=== PATIENT | female | born 1935 | race Caucasian/White ===

== ENCOUNTER 2017-02-22 17:57 | Inpatient (IN) ==
[2017-02-22 18:56] LABS: Bilirubin,Urine Negative (Negative); Blood,Urine Negative (Negative); Clarity,Urine Clear (Clear); Color,Urine Yellow (Yellow); Glucose,Urine (UA) Normal (Normal); Ketones,Urine Negative (Negative); Leukocyte Esterase,Urine Small (Negative); Nitrite,Urine Negative (Negative); PH,Urine 5.5 pH Units (5.0-8.0); Protein,Urine 30 mg/dL (Neg-Trace); Specific Gravity,Urine 1.017 (1.010-1.025); Urobilinogen,Urine Normal (Normal)
[2017-02-22] MEDS ORDERED: Ondansetron 4 MG/2 ML VIAL IVP ONE (19:00)
[2017-02-22] MEDS ORDERED: 0.9 % Sodium Chloride 1,000 ML IVC ONE ×2 (19:00→21:06)
[2017-02-22] MEDS ORDERED: Pantoprazole 40 MG VIAL IVP ONE (19:00)
[2017-02-22 19:33] LABS: Hyaline Casts,Urine Few per lpf (None-Few); Squamous Epithelial Cell,Urine Moderate per lpf (None-Few)
[2017-02-22 19:35] LABS: Bacteria,Urine None Seen per hpf (None-Few)
--- NOTE | 2017-02-22 19:52 | Emergency Department Note ---
Disposition Clinical Impression: Inflammation of small intestine Disposition: Admitted As Inpatient Condition: Good Time of Disposition: 23:28 Abdominal Pain HPI - General Chief Complaint: ED Abdominal Pain Stated Complaint: Poss bowel obstruction Time Seen by Provider: 02/22/17 18:32 Source: patient Nursing Notes Reviewed: Yes Vital Signs Reviewed: Yes - History of Present Illness HPI Narrative: Patient is a 81-year-old female with history of diabetes, status post appendectomy and hysterectomy years ago. Patient presents with chief complaint of abdominal pain, bloating, diarrhea 1 week. Patient states her symptoms began with early satiety after eating meals and now was able to eat less and less. Patient states she currently is only able to tolerate Jell-O or put in the past 3 days. Patient states that 5 days ago she had a large bowel movements of watery stool that did not resolve her symptoms of abdominal pain and distention. Patient states is generalized abdominal tenderness, constant 8- 10/10. Also admits to past medical history for breast cancer status post lumpectomy on left Pain Scale: 0 - Related Data Home Medications Medication Instructions Recorded Confirmed Allopurinol [Zyloprim 100 MG] 100 mg PO DAILY 02/22/17 02/22/17 Atorvastatin Calcium [Lipitor] 80 mg PO HS 02/22/17 02/22/17 Calcitriol [Rocaltrol] 0.25 mcg PO DAILY 02/22/17 02/22/17 Cholecalciferol (D-3) [Vitamin D] 1,000 unit PO DAILY 02/22/17 02/22/17 Ciprofloxacin HCl [Cipro] 500 mg PO BID 02/22/17 02/22/17 Furosemide [Lasix] 40 mg PO DAILY 02/22/17 02/22/17 Gabapentin [Neurontin] 600 mg PO BID 02/22/17 02/22/17 Glimepiride [Amaryl] 4 mg PO BID 02/22/17 02/22/17 Lisinopril [Zestril] 40 mg PO DAILY 02/22/17 02/22/17 Metoprolol Succinate 150 mg PO DAILY 02/22/17 02/22/17 Tramadol HCl [Ultram] 50 mg PO BID PRN 02/22/17 02/22/17 Vitamin B Complex [B Complex] 1 each PO DAILY 02/22/17 02/22/17 cloNIDine HCl [Clonidine HCl] 0.2 mg PO BID 02/22/17 02/22/17 metroNIDAZOLE [Flagyl] 500 mg PO BID 02/22/17 02/22/17 Allergies Allergy/AdvReac Type Severity Reaction Status Date / Time Procaine [From Novocain] AdvReac Shakiness Verified 02/22/17 18:06 All systems ED: reviewed and negative except as stated. Review of Systems: As Per HPI Constitutional: Denies: fever, chills Eyes: Denies: vision change Cardiovascular: Denies: chest pain, palpitations, dyspnea on exertion Respiratory: Reports: dyspnea Gastrointestinal: Reports: abdominal pain, nausea, diarrhea. Denies: vomiting, hematemesis, melena, hematochezia Genitourinary: Denies: urgency, dysuria, frequency, hematuria Musculoskeletal: Reports: back pain. Denies: neck pain, joint swelling, arthralgia, myalgia Integumentary: Denies: rash Neurological: Denies: headache, weakness Psychiatric: Denies: anxiety Endocrine: Denies: fatigue Hematological/Lymphatic: Denies: easy bleeding Abdominal Pain PMH - Past Medical History Medical history: Reports: diabetes Female Surgical History: Reports: appendectomy, hysterectomy, orthopedic, other Psychiatric history: Reports: no psych history - Social History Smoking status: Never smoker Alcohol use: Reports: none Drug use: Reports: none Physical Exam - General Limitations: no limitations General appearance: alert, in no apparent distress - Head Head exam: atraumatic, normocephalic, normal inspection - Eye Eye exam: Present: normal appearance, PERRL, EOMI - ENT ENT exam: normal exam, normal oropharynx, mucous membranes moist - Neck Neck exam: Present: normal inspection, full ROM, trachea midline - Chest Chest inspection: Present: normal inspection, symmetric chest wall rise - Cardiovascular Cardiovascular exam: Present: regular rate, normal rhythm, normal heart sounds - Abdominal Exam Abdominal exam: Present: soft, tenderness (Generalized tenderness throughout abdomen), distention (Rounded distended more lower abdomen), normal bowel sounds (Continuous bowel sounds with high-pitched noises), hyperactive bowel sounds. Absent: guarding, rebound, rigidity, trauma, Alvarez's sign - Rectal Exam Network/Telecom Engineer present during exam: Yes Rectal exam: Present: normal inspection, normal rectal tone, heme (-) stool. Absent: black stool (Brown stool), hemorrhoids, mass, tenderness - Extremities Exam Extremities exam: Present: normal inspection, full ROM. Absent: tenderness, pedal edema - Back Exam Back exam: Present: normal inspection, full ROM. Absent: tenderness, CVA tenderness (R), CVA tenderness (L) - Neurological Exam Neurological exam: Present: alert, oriented X3, CN II-XII intact - Skin Skin exam: Present: warm, dry, intact, normal color (Nontoxic appearing) Course - Reevaluation(s) Reevaluation #1: Patient seen and examined. Workup for bowel obstruction to include CT abdomen and pelvis no IV contrast secondary to patient's history of renal insufficiency CBC, BMP, fecal occult blood tests, lactate, lipase, LFTs. IV normal saline 1 L , Zofran for nausea Time: 19:00 Vital Signs Temperature 98.5 F 02/22/17 18:02 Pulse Rate 71 02/22/17 18:02 Respiratory Rate 16 02/22/17 18:02 Blood Pressure 208/82 02/22/17 18:02 O2 Sat by Pulse Oximetry 95 02/22/17 18:02 Temperature 98.5 F 02/22/17 22:24 Pulse Rate 63 02/22/17 20:05 Respiratory Rate 18 02/22/17 22:24 Blood Pressure 198/86 02/22/17 22:24 O2 Sat by Pulse Oximetry 95 02/22/17 20:05 Oxygen Delivery Oxygen Delivery Room Air Abdominal Pain - MDM Narrative Medical decision making narrative: Patient presented from her PCPs office for concerns secondary to possible small bowel obstruction or gastrointestinal ileus after acute abdominal series findings and clinical findings of early satiety, no abdominal distention, abdominal pain, and nausea. CT abdomen and pelvis was taken which showed no SBO or other full range obstruction. There was small bowel inflammation and concerns for possible perforation but could not be verified on CT. Current plan is for admission for serial abdominal exams. No surgical consult. Now secondary to nonsurgical abdomen no peritoneal signs or rebound tenderness. No elevation of lactate were lab abnormalities. Patient's creatinine and BUN are at patient's normal baseline. Urine is negative. Patient will be started on 750 mg of levofloxacin and 500 mg of metronidazole IV. Patient is nauseous and controlled the patient's pain is under control. Patient is currently doing well does not appear toxic. Patient does understand and agreed to treatment plan for admission. Patient was accepted for admission Dr. Van at 2049 hrs - Lab Data Lab results reviewed: Yes I reviewed the patient's lab results. Lab results narrative: Short CBC 02/22/17 Range/Units 19:56 WBC 8.8 (4.3-11.1) K/mcL Hgb 10.4 L (11.5-15.4) g/dL Hct 32.1 L (35.3-44.9) % Plt Count 164 (140-400) K/mcL Neutrophils # 6.8 (1.6-8.9) K/mcL BMP 02/22/17 Range/Units 19:56 Sodium 137 (136-145) mEq/L Potassium 3.7 (3.5-4.5) mEq/L Chloride 102 (98-109) mEq/L Carbon Dioxide 27 (19-29) mEq/L BUN 25 H (7-20) mg/dL Creatinine 1.42 H (0.57-1.11) mg/dL Glucose 209 H (70-99) mg/dL Calcium 10.0 (8.6-10.8) mg/dL Liver Function 02/22/17 Range/Units 19:56 Total Bilirubin 0.8 (0.2-1.2) mg/dL Direct Bilirubin 0.5 (0.0-0.5) mg/dL AST 28 (5-34) Units/L ALT 29 (0-55) Units/L Alkaline Phosphatase 71 (38-126) Units/L Albumin 2.8 L (3.5-5.0) g/dL Urine 02/22/17 Range/Units 18:37 Urine Color Yellow (Yellow) Urine Clarity Clear (Clear) Urine pH 5.5 (5.0-8.0) pH Units Ur Specific Hewitt 1.017 (1.010-1.025) Urine Protein 30 H (Neg-Trace) mg/dL Urine Glucose (UA) Normal (Normal) mg/dL Result diagrams: 02/22/17 19:56 02/22/17 19:56 Lab Results 02/22/17 02/22/17 02/22/17 Range/Units 18:37 19:00 19:56 WBC 8.8 (4.3-11.1) K/mcL RBC 3.42 L (3.82-4.97) M/mcL Hgb 10.4 L (11.5-15.4) g/dL Hct 32.1 L (35.3-44.9) % MCV 93.9 (83.0-100.0) fL MCH 30.4 (28.0-33.3) pg MCHC 32.4 (31.6-35.5) g/dL RDW 13.3 (11.5-14.5) % Plt Count 164 (140-400) K/mcL MPV 10.3 (9.4-12.4) fL Immature Gran % 0.6 (0-4) % Seg Neutrophils % 77.0 % Lymphocytes % 10.5 % Monocytes % 11.0 % Eosinophils % 0.6 % Basophils % 0.3 % Neutrophils # 6.8 (1.6-8.9) K/mcL Lymphocytes # 0.9 (0.6-4.6) K/mcL Monocytes # 1.0 (0.0-1.3) K/mcL Eosinophils # 0.1 (0.0-0.6) K/mcL Basophils # 0.0 (0.0-0.2) K/mcL Sodium (136-145) mEq/L Potassium (3.5-4.5) mEq/L Chloride (98-109) mEq/L Carbon Dioxide (19-29) mEq/L BUN (7-20) mg/dL Creatinine (0.57-1.11) mg/dL Est GFR ( Amer) (> 60) Est GFR (Non-Af Amer) (> 60) BUN/Creatinine Ratio (6-26) Glucose (70-99) mg/dL Calculated Osmolality (280-300) Lactic Acid (0.5-2.2) mmol/L Calcium (8.6-10.8) mg/dL Total Bilirubin (0.2-1.2) mg/dL Direct Bilirubin (0.0-0.5) mg/dL Indirect Bilirubin (0.0-1.2) mg/dL AST (5-34) Units/L ALT (0-55) Units/L Alkaline Phosphatase (38-126) Units/L Serum Total Protein (6.0-8.3) g/dL Albumin (3.5-5.0) g/dL Globulin (2.4-3.5) g/dL Albumin/Globulin Ratio (1.1-2.2) Lipase (8-78) Units/L Urine Color Yellow (Yellow) Urine Clarity Clear (Clear) Urine pH 5.5 (5.0-8.0) pH Units Ur Specific Hewitt 1.017 (1.010-1.025) Urine Protein 30 H (Neg-Trace) mg/dL Urine Glucose (UA) Normal (Normal) mg/dL Urine Ketones Negative (Negative) mg/dL Urine Blood Negative (Negative) Urine Nitrite Negative (Negative) Urine Bilirubin Negative (Negative) Urine Urobilinogen Normal (Normal) mg/dL Ur Leukocyte Esterase Small H (Negative) Urine Microscopic RBC Test Not Performed Urine Microscopic WBC 3-5 H (0-3) per hpf Ur Squamous Epith Cells Moderate H (None-Few) per lpf Urine Bacteria None Seen (None-Few) per hpf Hyaline Casts Few (None-Few) per lpf Ur Culture Indicated? YES A (NO) Stool Occult Blood Negative (Negative) 02/22/17 02/22/17 Range/Units 19:56 19:56 WBC (4.3-11.1) K/mcL RBC (3.82-4.97) M/mcL Hgb (11.5-15.4) g/dL Hct (35.3-44.9) % MCV (83.0-100.0) fL MCH (28.0-33.3) pg MCHC (31.6-35.5) g/dL RDW (11.5-14.5) % Plt Count (140-400) K/mcL MPV (9.4-12.4) fL Immature Gran % (0-4) % Seg Neutrophils % % Lymphocytes % % Monocytes % % Eosinophils % % Basophils % % Neutrophils # (1.6-8.9) K/mcL Lymphocytes # (0.6-4.6) K/mcL Monocytes # (0.0-1.3) K/mcL Eosinophils # (0.0-0.6) K/mcL Basophils # (0.0-0.2) K/mcL Sodium 137 (136-145) mEq/L Potassium 3.7 (3.5-4.5) mEq/L Chloride 102 (98-109) mEq/L Carbon Dioxide 27 (19-29) mEq/L BUN 25 H (7-20) mg/dL Creatinine 1.42 H (0.57-1.11) mg/dL Est GFR ( Amer) 43 L (> 60) Est GFR (Non-Af Amer) 36 L (> 60) BUN/Creatinine Ratio 18 (6-26) Glucose 209 H (70-99) mg/dL Calculated Osmolality 295 (280-300) Lactic Acid 0.8 (0.5-2.2) mmol/L Calcium 10.0 (8.6-10.8) mg/dL Total Bilirubin 0.8 (0.2-1.2) mg/dL Direct Bilirubin 0.5 (0.0-0.5) mg/dL Indirect Bilirubin 0.3 (0.0-1.2) mg/dL AST 28 (5-34) Units/L ALT 29 (0-55) Units/L Alkaline Phosphatase 71 (38-126) Units/L Serum Total Protein 6.9 (6.0-8.3) g/dL Albumin 2.8 L (3.5-5.0) g/dL Globulin 4.1 H (2.4-3.5) g/dL Albumin/Globulin Ratio 0.7 L (1.1-2.2) Lipase 56 (8-78) Units/L Urine Color (Yellow) Urine Clarity (Clear) Urine pH (5.0-8.0) pH Units Ur Specific Hewitt (1.010-1.025) Urine Protein (Neg-Trace) mg/dL Urine Glucose (UA) (Normal) mg/dL Urine Ketones (Negative) mg/dL Urine Blood (Negative) Urine Nitrite (Negative) Urine Bilirubin (Negative) Urine Urobilinogen (Normal) mg/dL Ur Leukocyte Esterase (Negative) Urine Microscopic RBC Urine Microscopic WBC (0-3) per hpf Ur Squamous Epith Cells (None-Few) per lpf Urine Bacteria (None-Few) per hpf Hyaline Casts (None-Few) per lpf Ur Culture Indicated? (NO) Stool Occult Blood (Negative) - Radiology Data Radiology results reviewed: Yes I reviewed the patient's radiology results. Abdomen/Pelvis CT 02/22/17 19:01 IMPRESSION: 1. Cluster of inflamed small bowel loops in the mid left abdomen with wall thickening and mesenteric stranding. Cannot exclude a a small contained perforation and further evaluation could be obtained with repeat study with oral contrast. No well-defined drainable fluid collection. 2. Colonic diverticulosis without evidence of acute diverticulitis. 3. 4.1 cm indeterminate lesion arising from the lower pole of the left kidney probably representing a proteinaceous cyst though neoplasm cannot be excluded. Several small exophytic lesions arising from the lower pole of the right kidney too small to definitively characterize. Recommend further evaluation with nonemergent ultrasound or CT urogram. D/ / Carlos Middleton MD / Carlos Middleton MD Interpreting Provider: Carlos Middleton MD Attestation Statement - Attestation Attestation: I examined this patient and my medical decision-making was reviewed with the Resident Physician. I agree with the documented findings, disposition and treatment plan as described except to the extent set forth below. Patient eating about abdominal pain. Nausea and diarrhea. Small caliber bowel movements. Increasing over the past week. History of multiple abdominal surgeries. Patient with a moderate amount of diffuse tenderness on exam. Plan. Patient has an area of thickened small bowel and her CT scan. Concern because they could not rule out a contained perforation. Antibiotic and admit.
[2017-02-22 20:12] LABS: Basophils % 0.3 %; Eosinophils # 0.1 K/mcL (0.0-0.6); Eosinophils % 0.6 %; Hematocrit 32.1 % (35.3-44.9); Hemoglobin 10.4 g/dL (11.5-15.4); Immature Granulocytes % 0.6 % (0-4); Lymphocytes # 0.9 K/mcL (0.6-4.6); Lymphocytes % 10.5 %; Mean Corpuscular HGB Conc 32.4 g/dL (31.6-35.5); Mean Corpuscular Hemoglobin 30.4 pg (28.0-33.3); Mean Corpuscular Volume 93.9 fL (83.0-100.0); Mean Platelet Volume 10.3 fL (9.4-12.4); Neutrophils # 6.8 K/mcL (1.6-8.9); Platelet Count 164 K/mcL (140-400); Red Blood Count 3.42 M/mcL (3.82-4.97); Red Cell Distribution Width 13.3 % (11.5-14.5)
[2017-02-22 20:27] LABS: Albumin 2.8 g/dL (3.5-5.0); Albumin/Globulin Ratio 0.7 (1.1-2.2); Bilirubin,Direct 0.5 mg/dL (0.0-0.5); Bilirubin,Indirect 0.3 mg/dL (0.0-1.2); Bilirubin,Total 0.8 mg/dL (0.2-1.2); Globulin 4.1 g/dL (2.4-3.5); Potassium 3.7 mEq/L (3.5-4.5); Total Protein 6.9 g/dL (6.0-8.3)
[2017-02-22] MEDS ORDERED: Levofloxacin 750 MG/150 ML 750 MG/150 ML BAG IVPB ONE (20:57)
[2017-02-22] MEDS ORDERED: MetroNIDAZOLE 500 MG/100 ML 500 MG/100 ML BAG IVPB ONE (20:57)
[2017-02-22] MEDS ORDERED: *HR* Morphine 2 MG/ML SYRINGE IVP ONE (21:06)
[2017-02-23] MEDS ORDERED: cloNIDine HCl 0.1 MG TABLET PO ONE (00:25)
--- NOTE | 2017-02-23 00:49 | Internal Med History&Physical ---
Date of Encounter: 02/23/17 Time of Encounter: 00:49 Assessment and Plan (1) Enteritis Current visit: Yes Status: Acute CT: Cluster of inflamed small bowel loops in the mid left abdomen with wall thickening and mesenteric stranding. Cannot exclude a a small contained perforation and further evaluation could be obtained with repeat study with oral contrast. No well-defined drainable fluid collection. - WBC 8k - Lactate normal - Non toxic appearing - Conservative management - IVF - IV metronidazole and ciprofloxacin (02/22- ) - Dilaudid/Compazine prn - Recheck lactate in AM - NPO (2) Accelerated hypertension Current visit: Yes Status: Acute Resume clonidine, metoprolol, lisinopril (3) Diabetes mellitus Current visit: Yes Status: Acute Hold glimipiride while NPO in the setting of CKD - start SSI Qualifiers: Diabetes mellitus type: type 2 Diabetes mellitus complication status: with kidney complications Diabetes mellitus complication detail: with chronic kidney disease Diabetes mellitus rat exterminator insulin use: without rat exterminator use Chronic kidney disease stage: stage 3 (moderate) Qualified Code(s): E11.22 - Type 2 diabetes mellitus with diabetic chronic kidney disease; N18.3 - Chronic kidney disease, stage 3 (moderate) (4) CKD (chronic kidney disease) stage 3, GFR 30-59 ml/min Current visit: Yes Status: Acute - Cr at baseline - Avoid nephrotoxic agents (5) Kidney lesion Current visit: Yes Status: Acute CT: 4.1 cm indeterminate lesion arising from the lower pole of the left kidney probably representing a proteinaceous cyst though neoplasm cannot be excluded. Several small exophytic lesions arising from the lower pole of the right kidney too small to definitively characterize. - OP renal ultrasound or CT urogram. Internal Medicine - H&P: HPI Chief complaint: abd pain Admitted From: Emergency Dept Plans for Post Hospital Care: Home History of present illness: 81W with DM, HTN, CKD3 (baseline Cr 1.2-1.3), prior abdominal surgeries ( appendectomy, hysterectomy) and breast cancer s/p lumpectomy has presented with 1 week of diffuse generalized abdominal pain, crampy in nature, varying in intensity, associated with nausea, fever 99F and weakness. Decreased oral intake. Diarrheal BM 5 days ago. Now, decreased stool amount, but passing small BMs. Passing flatus. Dry cough. Headache. Occasional dizziness. Exertional dyspnea at baseline. A 10-point ROS is otherwise negative. Past Med Surg Social Fam HX - Past Medical History Medical history: diabetes Psychiatric history: no psych history - Past Surgical History Surgical History: appendectomy, breast surgery, hysterectomy - Social History Smoking Status: Never smoker Smokeless Tobacco Status: No Alcohol use: none Drug use: none - Family History Father Hx Family Cardiac Disorders: Yes (HYPERTENSION.) Internal Medicine - H&P: Meds Allopurinol [Zyloprim 100 MG] 100 mg PO DAILY 02/22/17 [History] Atorvastatin Calcium [Lipitor] 80 mg PO HS 02/22/17 [History] Calcitriol [Rocaltrol] 0.25 mcg PO DAILY 02/22/17 [History] Cholecalciferol (D-3) [Vitamin D] 1,000 unit PO DAILY 02/22/17 [History] Ciprofloxacin HCl [Cipro] 500 mg PO BID 02/22/17 [History] Furosemide [Lasix] 40 mg PO DAILY 02/22/17 [History] Gabapentin [Neurontin] 600 mg PO BID 02/22/17 [History] Glimepiride [Amaryl] 4 mg PO BID 02/22/17 [History] Lisinopril [Zestril] 40 mg PO DAILY 02/22/17 [History] Metoprolol Succinate 150 mg PO DAILY 02/22/17 [History] Tramadol HCl [Ultram] 50 mg PO BID PRN 02/22/17 [History] Vitamin B Complex [B Complex] 1 each PO DAILY 02/22/17 [History] cloNIDine HCl [Clonidine HCl] 0.2 mg PO BID 02/22/17 [History] metroNIDAZOLE [Flagyl] 500 mg PO BID 02/22/17 [History] 3 Allergy/AdvReac Type Severity Reaction Status Date / Time Procaine [From Novocain] AdvReac Shakiness Verified 02/22/17 18:06 All Systems PM: A 10-system review of systems was performed and is negative for pertinent findings except as documented above in the HPI. - Constitutional Vitals: Temp Pulse Resp BP Pulse Ox 98.3 F 67 15 204/72 95 02/22/17 23:42 02/22/17 23:42 02/22/17 23:42 02/22/17 23:42 02/22/17 23:42 General appearance: Present: A&O X 3, pleasant, no acute distress (non toxic appearing) - Head Head exam: Present: atraumatic, normocephalic - Eye Eye exam: Present: PERRL, conjuntiva pink, sclera anicteric Pupils: Present: PERRL - Neck Neck exam general surgery: Present: supple, trachea midline. Absent: nuchal rigidity - Respiratory Respiratory exam: Present: CTAB. Absent: accessory muscle use, rales, rhonchi, wheezes - Cardiovascular Cardiovascular exam: Present: RRR, +S1, +S2. Absent: diastolic murmur, gallop, rubs, systolic murmur - GI/Abdominal GI/Abdominal exam: Present: normal bowel sounds (all 4 quadrannts), soft, tenderness (diffuse mild), no peritoneal signs. Absent: distended, firm, guarding, rebound, rigid - Extremities Exam Extremities exam: Present: warm, radial pulses palpable and symmetrical. Absent : calf tenderness, cyanotic, pedal edema - Neurological Exam Neurological exam: Present: CN II-XII intact, oriented X3, no focal deficits. Absent: facial droop, speech deficit - Psychiatric Psychiatric exam: Present: normal affect, normal mood - Skin Skin exam: Present: dry, intact. Absent: rash Internal Med - H&P Results - Labs CBC & Chem 7: 02/22/17 19:56 02/22/17 19:56
[2017-02-23] MEDS ORDERED: Acetaminophen 325 MG TABLET PO PRN (01:19)
[2017-02-23] MEDS ORDERED: D5% in Water 1,000 ML IVC PRN (01:19)
[2017-02-23] MEDS ORDERED: Dextrose Gel 15 GM PO PRN ×2 (01:19)
[2017-02-23] MEDS ORDERED: *HR* HYDROmorphone (PF) 1 MG/ML SYRINGE IVP PRN (01:19)
[2017-02-23] MEDS ORDERED: *HR* Dextrose 50 % in Water (Syg) 50 ML SYRINGE IVP PRN (01:19)
[2017-02-23] MEDS ORDERED: Naloxone 0.4 MG/ML INJ IVP PRN (01:19)
[2017-02-23] MEDS ORDERED: Prochlorperazine 10 MG/2 ML VIAL IM PRN (01:24)
[2017-02-23] MEDS: Ringers Solution, Lactated 1,000 ML IVC SCH ×3 (02:00→20:01)
[2017-02-23 02:47] LABS: Hemoglobin A1C 7.2 %
[2017-02-23 05:16] LABS: Basophils % 0.5 %; Eosinophils # 0.1 K/mcL (0.0-0.6); Eosinophils % 1.5 %; Hematocrit 29.8 % (35.3-44.9); Hemoglobin 9.9 g/dL (11.5-15.4); Immature Granulocytes % 0.6 % (0-4); Lymphocytes % 15.4 %; Mean Corpuscular HGB Conc 33.2 g/dL (31.6-35.5); Mean Corpuscular Volume 93.4 fL (83.0-100.0); Mean Platelet Volume 9.9 fL (9.4-12.4); Monocytes # 0.8 K/mcL (0.0-1.3); Monocytes % 12.7 %; Neutrophils # 4.6 K/mcL (1.6-8.9); Platelet Count 154 K/mcL (140-400); Red Blood Count 3.19 M/mcL (3.82-4.97); Red Cell Distribution Width 13.2 % (11.5-14.5); Segmented Neutrophils % 69.3 %
[2017-02-23 05:25] LABS: Calcium 9.6 mg/dL (8.6-10.8); Magnesium 1.9 mg/dL (1.6-2.6); Phosphorous 3.4 mg/dL (2.3-4.7)
[2017-02-23] MEDS: *HR* Heparin 5,000 UNIT/ML VIAL SQ SCH ×3 (05:33→21:09)
[2017-02-23] MEDS: Insulin LISPRO 300 UNITS/3 ML VIAL SQ SCH ×3 (06:02→17:41)
[2017-02-23] MEDS: MetroNIDAZOLE 500 MG/100 ML 500 MG/100 ML BAG IVPB SCH ×3 (07:37→23:11)
[2017-02-23] MEDS: Gabapentin 300 MG CAPSULE PO SCH ×2 (07:37→20:02)
[2017-02-23] MEDS: Metoprolol XL (24 HR) Succ 50 MG TAB.ER.24H PO SCH (07:37)
[2017-02-23] MEDS: Lisinopril 20 MG TABLET PO SCH (07:37)
[2017-02-23] MEDS: cloNIDine HCl 0.1 MG TABLET PO SCH ×2 (07:37→20:02)
--- NOTE | 2017-02-23 18:22 | Internal Med Progress Note ---
Date of Encounter: 02/23/17 Time of Encounter: 18:19 - Assessment and plan (1) Malignant hypertension Current Visit: Yes Status: Acute Assessment and plan: Continue lisinopril, clonidine Hydralazine IV Consider nitroglycerin drip if not improving (2) Enteritis Current Visit: Yes Status: Acute Assessment and plan: Severe abdominal pain possibly secondary to acute enteritis with possible microperforation Continue ciprofloxacin IV and Flagyl IV, nothing by mouth, IV fluids Morphine for pain Repeat CT scan of the abdomen and pelvis with oral contrast IMPRESSION: 1. Cluster of inflamed small bowel loops in the mid left abdomen with wall thickening and mesenteric stranding. Cannot exclude a a small contained perforation and further evaluation could be obtained with repeat study with oral contrast. No well-defined drainable fluid collection. 2. Colonic diverticulosis without evidence of acute diverticulitis. 3. 4.1 cm indeterminate lesion arising from the lower pole of the left kidney probably representing a proteinaceous cyst though neoplasm cannot be excluded. Several small exophytic lesions arising from the lower pole of the right kidney too small to definitively characterize. Recommend further evaluation with nonemergent ultrasound or CT urogram. (3) Diabetes mellitus Current Visit: Yes Status: Acute Assessment and plan: Continue insulin sliding scale Qualifiers: Diabetes mellitus type: type 2 Diabetes mellitus complication status: with kidney complications Diabetes mellitus complication detail: with chronic kidney disease Diabetes mellitus terminal operator insulin use: without terminal operator use Chronic kidney disease stage: stage 3 (moderate) Qualified Code(s): E11.22 - Type 2 diabetes mellitus with diabetic chronic kidney disease; N18.3 - Chronic kidney disease, stage 3 (moderate) (4) CKD (chronic kidney disease) stage 3, GFR 30-59 ml/min Current Visit: Yes Status: Acute (5) Kidney lesion Current Visit: Yes Status: Acute Assessment and plan: 4.1 cm indeterminate lesion arising from the lower pole of the left kidney probably representing a proteinaceous cyst though neoplasm cannot be excluded. Several small exophytic lesions arising from the lower pole of the right kidney too small to definitively characterize. - Subjective Interval history: Severe abdominal tenderness, nausea, denies any chest pressure of breath, - Constitutional Vitals: Temp Pulse Resp BP Pulse Ox 98.3 F 62 16 133/64 95 02/23/17 15:18 02/23/17 15:18 02/23/17 15:18 02/23/17 15:58 02/23/17 15:18 General appearance: Present: A&O X 3, pleasant, no acute distress (non toxic appearing) Exam: Dry mucosa - Head Head exam: Present: atraumatic, normocephalic - Eye Eye exam: Present: PERRL, conjuntiva pink, sclera anicteric Pupils: Present: PERRL - Neck Neck exam general surgery: Present: supple, trachea midline. Absent: lymphadenopathy - Respiratory Respiratory exam: Present: decreased breath sounds, CTAB. Absent: accessory muscle use, rales, rhonchi, wheezes - Cardiovascular Cardiovascular exam: Present: RRR, +S1, +S2, systolic murmur (Systolic murmur 2 out of 6 radiated to the aortic area). Absent: diastolic murmur, gallop, rubs - GI/Abdominal GI/Abdominal exam: Present: distended (Very distended, diffusely tender, possible rebound), normal bowel sounds, soft, tenderness, no peritoneal signs - Extremities Exam Extremities exam: Present: warm, radial pulses palpable and symmetrical. Absent : calf tenderness, cyanotic, pedal edema - Neurological Exam Neurological exam: Present: CN II-XII intact, oriented X3, no focal deficits. Absent: pronater drift, facial droop, speech deficit - Skin Skin exam: Present: dry, intact Internal Medicine: Result - Labs CBC & Chem 7: 02/23/17 05:06 02/23/17 05:06 Labs: Short CBC 02/23/17 Range/Units 05:06 WBC 6.6 (4.3-11.1) K/mcL Hgb 9.9 L (11.5-15.4) g/dL Hct 29.8 L (35.3-44.9) % Plt Count 154 (140-400) K/mcL Neutrophils # 4.6 (1.6-8.9) K/mcL BMP 02/23/17 05:06 Sodium 141 Potassium 4.0 Chloride 105 Carbon Dioxide 29 BUN 20 Creatinine 1.36 H Glucose 72 Calcium 9.6 Consult Discharge Plan - Plan Referrals: Solis Armas CNP [Primary Care Provider] -
[2017-02-24] MEDS: Insulin LISPRO 300 UNITS/3 ML VIAL SQ SCH ×4 (00:10→17:24)
[2017-02-24] MEDS: Ringers Solution, Lactated 1,000 ML IVC SCH ×4 (03:26→18:25)
[2017-02-24 05:02] LABS: Hematocrit 29.6 % (35.3-44.9); Hemoglobin 9.9 g/dL (11.5-15.4); Immature Platelets 2.1 % (1.1-6.1); Mean Corpuscular HGB Conc 33.4 g/dL (31.6-35.5); Mean Corpuscular Hemoglobin 30.9 pg (28.0-33.3); Mean Corpuscular Volume 92.5 fL (83.0-100.0); Mean Platelet Volume 10.5 fL (9.4-12.4); Red Blood Count 3.2 M/mcL (3.82-4.97); Red Cell Distribution Width 13.2 % (11.5-14.5)
[2017-02-24] MEDS: *HR* Heparin 5,000 UNIT/ML VIAL SQ SCH ×3 (05:35→21:02)
[2017-02-24 05:48] LABS: Calcium 9.4 mg/dL (8.6-10.8); Potassium 3.7 mEq/L (3.5-4.5)
[2017-02-24] MEDS: MetroNIDAZOLE 500 MG/100 ML 500 MG/100 ML BAG IVPB SCH ×3 (07:50→23:13)
[2017-02-24] MEDS: Lisinopril 20 MG TABLET PO SCH (07:50)
[2017-02-24] MEDS: cloNIDine HCl 0.1 MG TABLET PO SCH ×2 (07:51→20:25)
[2017-02-24] MEDS: Gabapentin 300 MG CAPSULE PO SCH ×2 (07:51→19:44)
[2017-02-24] MEDS: Metoprolol XL (24 HR) Succ 50 MG TAB.ER.24H PO SCH (07:51)
--- NOTE | 2017-02-24 15:13 | General Surgery Consult Note ---
<Kym Bautista - Last Filed: 02/24/17 15:06> Date of Encounter: 02/24/17 Time of Encounter: 14:00 Assessment and Plan (1) Enteritis Current Visit: Yes Status: Acute May have clear liquids IV fluids IV antibiotics- Cipro and Flagyl (will need to continue for at least 48 hours) Serial abdominal exams Supportive care/pain control Will continue to follow and assess progress No urgent surgical intervention indicated at this time (2) Phlegmon Current Visit: Yes Status: Acute Continue IV antibiotics for at least the next 48 hours- cipro and flagyl History of Present Illness Consult date: 02/24/17 Reason for consult: abdominal pain Requesting physician: Jack Stearns History of present illness: Mrs. Barksdale is a very pleasant 81 year old female who was transferred to [place] due to an abnormal CT scan. She reports abdominal pain for the past 1 week. She describes the pain as a cramping pain. She states that the pain is worse with eating. She states that the pain essentially resolves if she doesn't eat for a day. Admit to nausea without vomiting. Admits to bloating. Admits to fevers and chills. She has not checked her temperature. She has had a decrease in the amount of bowel movements over the past 1 week but denies any constipation or diarrhea. She typically has a bowel movement 1 time daily. She reports decreased flatus. Denies any difficulty with urination. Admits to shortness of breath with activity. Denies any chest pains. We have been asked to see and evaluate the patient for her abdominal pain and abnormal CT scan results. Past Med Surg Social Fam HX - Past Medical History Source: old records reviewed Medical history: diabetes (Type 2), hyperlipidemia, hypertension, renal disease , other (neuropathy, gout) Psychiatric history: no psych history - Past Surgical History Surgical History: appendectomy, breast surgery (left), cancer surgery (breast ( left)), hysterectomy, other (colonoscopy X 2) - Social History Smoking Status: Never smoker Smokeless Tobacco Status: No Alcohol use: none Drug use: none Current living situation: Home - Independent Activity Level: Independent ambulation - Family History Father Living Status: Age at : 73 Cause of : heart disease Hx Family Cardiac Disorders: Yes (HYPERTENSION.) Mother Living Status: Age at : 72 Cause of : pancreatic cancer Hx Family Cancer: Yes (pancreatic) Sister Living Status: Age at : 80 Hx Family Cancer: Yes (breast cancer) Hx Family Endocrine Disorder: Yes (Diabetes Mellitus) Medications and Allergies Allopurinol [Zyloprim 100 MG] 100 mg PO DAILY 02/22/17 [History] Atorvastatin Calcium [Lipitor] 80 mg PO HS 02/22/17 [History] Calcitriol [Rocaltrol] 0.25 mcg PO DAILY 02/22/17 [History] Cholecalciferol (D-3) [Vitamin D] 1,000 unit PO DAILY 02/22/17 [History] Ciprofloxacin HCl [Cipro] 500 mg PO BID 02/22/17 [History] Furosemide [Lasix] 40 mg PO DAILY 02/22/17 [History] Gabapentin [Neurontin] 600 mg PO BID 02/22/17 [History] Glimepiride [Amaryl] 4 mg PO BID 02/22/17 [History] Lisinopril [Zestril] 40 mg PO DAILY 02/22/17 [History] Metoprolol Succinate 150 mg PO DAILY 02/22/17 [History] Tramadol HCl [Ultram] 50 mg PO BID PRN 02/22/17 [History] Vitamin B Complex [B Complex] 1 each PO DAILY 02/22/17 [History] cloNIDine HCl [Clonidine HCl] 0.2 mg PO BID 02/22/17 [History] metroNIDAZOLE [Flagyl] 500 mg PO BID 02/22/17 [History] 3 Allergy/AdvReac Type Severity Reaction Status Date / Time Procaine [From Novocain] AdvReac Shakiness Verified 02/22/17 18:06 Review of Systems All systems PM: reviewed and no additional remarkable complaints except as stated (in the HPI) All systems PM: A 10-system review of systems was performed and is negative for pertinent findings except as documented above in the HPI. General Surgery Exam Initial Vital Signs Temp Pulse Resp BP Pulse Ox 98.5 F 71 16 208/82 95 02/22/17 18:02 02/22/17 18:02 02/22/17 18:02 02/22/17 18:02 02/22/17 18:02 - General physical appearance well developed, well nourished, no distress, no pain - Eyes normal ocular movement - ENT normal mucosa, atraumatic, normocephalic - Neck trachea midline - Respiratory normal respiratory effort, clear to auscultation - Cardiovascular Cardiovascular exam: Present: RRR - Abdomen Abdomen general surgery: Present: bowel sounds present, soft, non tender - Integumentary Integumentary general surgery: Present: warm and dry - Neurologic Present: CN 2-12 grossly intact - Musculoskeletal Present: normal gait, normal posture - Psychiatric Psychiatric general surgery: Present: appropriate, oriented to person, oriented to place, oriented to time, speech is normal, memory intact Exam Initial Vital Signs Temp Pulse Resp BP Pulse Ox 98.5 F 71 16 208/82 95 02/22/17 18:02 02/22/17 18:02 02/22/17 18:02 02/22/17 18:02 02/22/17 18:02 Results - Labs 02/24/17 03:55 02/24/17 03:55 Abnormal lab results RBC 3.20 M/mcL (3.82-4.97) L 02/24/17 03:55 Hgb 9.9 g/dL (11.5-15.4) L 02/24/17 03:55 Hct 29.6 % (35.3-44.9) L 02/24/17 03:55 Creatinine 1.30 mg/dL (0.57-1.11) H 02/24/17 03:55 Est GFR ( Amer) 48 (> 60) L 02/24/17 03:55 Est GFR (Non-Af Amer) 40 (> 60) L 02/24/17 03:55 Glucose 101 mg/dL (70-99) H 02/24/17 03:55 POC Glucose 93 (58-89) H 02/24/17 04:38 Hemoglobin A1c 7.2 % (-5.6) H 02/22/17 19:56 Albumin 2.8 g/dL (3.5-5.0) L 02/22/17 19:56 Globulin 4.1 g/dL (2.4-3.5) H 02/22/17 19:56 Albumin/Globulin Ratio 0.7 (1.1-2.2) L 02/22/17 19:56 Urine Protein 30 mg/dL (Neg-Trace) H 02/22/17 18:37 Ur Leukocyte Esterase Small (Negative) H 02/22/17 18:37 Urine Microscopic WBC 3-5 per hpf (0-3) H 02/22/17 18:37 Ur Squamous Epith Cells Moderate per lpf (None-Few) H 02/22/17 18:37 Ur Culture Indicated? YES (NO) A 02/22/17 18:37 Diabetes panel 02/24/17 Range/Units 03:55 Sodium 140 (136-145) mEq/L Potassium 3.7 (3.5-4.5) mEq/L Chloride 104 (98-109) mEq/L Carbon Dioxide 26 (19-29) mEq/L BUN 14 (7-20) mg/dL Creatinine 1.30 H (0.57-1.11) mg/dL Glucose 101 H (70-99) mg/dL Calcium 9.4 (8.6-10.8) mg/dL Calcium panel 02/24/17 Range/Units 03:55 Calcium 9.4 (8.6-10.8) mg/dL Pituitary panel 02/24/17 Range/Units 03:55 Sodium 140 (136-145) mEq/L Potassium 3.7 (3.5-4.5) mEq/L Chloride 104 (98-109) mEq/L Carbon Dioxide 26 (19-29) mEq/L BUN 14 (7-20) mg/dL Creatinine 1.30 H (0.57-1.11) mg/dL Glucose 101 H (70-99) mg/dL Calcium 9.4 (8.6-10.8) mg/dL Adrenal panel 02/24/17 Range/Units 03:55 Sodium 140 (136-145) mEq/L Potassium 3.7 (3.5-4.5) mEq/L Chloride 104 (98-109) mEq/L Carbon Dioxide 26 (19-29) mEq/L BUN 14 (7-20) mg/dL Creatinine 1.30 H (0.57-1.11) mg/dL Glucose 101 H (70-99) mg/dL Calcium 9.4 (8.6-10.8) mg/dL All other labs normal. - Imaging CT scan - abdomen: report reviewed CT scan - pelvis: report reviewed Additional studies: Abdomen/Pelvis CT 02/23/17 21:00 IMPRESSION: Inflamed appearing and lesser small bowel loops in the left mid abdomen with moderate amount of mesenteric edema and associated adenopathy. There are adjacent foci of extraluminal gas including the contrast containing rounded 1.5 cm collection. Findings could represent small-bowel diverticulitis and/or contained perforation. Underlying neoplasm cannot be excluded. Bilateral lower pole renal cortical lesions, larger on the left, with density greater than expected for stones. Follow-up renal ultrasound versus renal protocol CT or MRI would be helpful to exclude solid lesion. D/ / Glory Escalona Cha, MD / Glory Escalona Cha, MD Interpreting Provider: Glory Escalona Cha, MD Consult Discharge Plan - Plan Referrals: Solis Armas CNP [Primary Care Provider] - - Attending Attestation For this encounter, I have reviewed the LOOP CUTTER or PA documentation, treatment plan, and medical decision making; and I have had face to face time with this patient. <Nayan Gustafson - Last Filed: 02/24/17 17:15> Date of Encounter: 02/24/17 Review of Systems All systems PM: A 10-system review of systems was performed and is negative for pertinent findings except as documented above in the HPI. General Surgery Exam Initial Vital Signs Temp Pulse Resp BP Pulse Ox 98.5 F 71 16 208/82 95 02/22/17 18:02 02/22/17 18:02 02/22/17 18:02 02/22/17 18:02 02/22/17 18:02 Exam Initial Vital Signs Temp Pulse Resp BP Pulse Ox 98.5 F 71 16 208/82 95 02/22/17 18:02 02/22/17 18:02 02/22/17 18:02 02/22/17 18:02 02/22/17 18:02 Results - Labs 02/24/17 03:55 02/24/17 03:55 Abnormal lab results RBC 3.20 M/mcL (3.82-4.97) L 02/24/17 03:55 Hgb 9.9 g/dL (11.5-15.4) L 02/24/17 03:55 Hct 29.6 % (35.3-44.9) L 02/24/17 03:55 Creatinine 1.30 mg/dL (0.57-1.11) H 02/24/17 03:55 Est GFR ( Amer) 48 (> 60) L 02/24/17 03:55 Est GFR (Non-Af Amer) 40 (> 60) L 02/24/17 03:55 Glucose 101 mg/dL (70-99) H 02/24/17 03:55 POC Glucose 93 (58-89) H 02/24/17 04:38 Hemoglobin A1c 7.2 % (-5.6) H 02/22/17 19:56 Albumin 2.8 g/dL (3.5-5.0) L 02/22/17 19:56 Globulin 4.1 g/dL (2.4-3.5) H 02/22/17 19:56 Albumin/Globulin Ratio 0.7 (1.1-2.2) L 02/22/17 19:56 Urine Protein 30 mg/dL (Neg-Trace) H 02/22/17 18:37 Ur Leukocyte Esterase Small (Negative) H 02/22/17 18:37 Urine Microscopic WBC 3-5 per hpf (0-3) H 02/22/17 18:37 Ur Squamous Epith Cells Moderate per lpf (None-Few) H 02/22/17 18:37 Ur Culture Indicated? YES (NO) A 02/22/17 18:37 Diabetes panel 02/24/17 Range/Units 03:55 Sodium 140 (136-145) mEq/L Potassium 3.7 (3.5-4.5) mEq/L Chloride 104 (98-109) mEq/L Carbon Dioxide 26 (19-29) mEq/L BUN 14 (7-20) mg/dL Creatinine 1.30 H (0.57-1.11) mg/dL Glucose 101 H (70-99) mg/dL Calcium 9.4 (8.6-10.8) mg/dL Calcium panel 02/24/17 Range/Units 03:55 Calcium 9.4 (8.6-10.8) mg/dL Pituitary panel 02/24/17 Range/Units 03:55 Sodium 140 (136-145) mEq/L Potassium 3.7 (3.5-4.5) mEq/L Chloride 104 (98-109) mEq/L Carbon Dioxide 26 (19-29) mEq/L BUN 14 (7-20) mg/dL Creatinine 1.30 H (0.57-1.11) mg/dL Glucose 101 H (70-99) mg/dL Calcium 9.4 (8.6-10.8) mg/dL Adrenal panel 02/24/17 Range/Units 03:55 Sodium 140 (136-145) mEq/L Potassium 3.7 (3.5-4.5) mEq/L Chloride 104 (98-109) mEq/L Carbon Dioxide 26 (19-29) mEq/L BUN 14 (7-20) mg/dL Creatinine 1.30 H (0.57-1.11) mg/dL Glucose 101 H (70-99) mg/dL Calcium 9.4 (8.6-10.8) mg/dL All other labs normal. - Attending Attestation I reviewed the above assessment and evaluation with the nurse practitioner and agree with the above. Patient had a one-week episode of abdominal pain particularly with eating solid foods. She states she was able to tolerate drinking liquids and eating tapioca without problems. Due to the worsening patient presents to the emergency room. Laboratory studies showed normal white count with a CT scan showing likely phlegmon of the small bowel versus a perforated but contain diverticulum of the small bowel. I agree with IV fluids and IV antibiotics and bowel rest. Also agree with current clear liquids. Serial abdominal exam and I will follow with you.
--- NOTE | 2017-02-24 17:00 | Internal Med Progress Note ---
Date of Encounter: 02/24/17 Time of Encounter: 16:50 - Assessment and plan (1) Malignant hypertension Current Visit: Yes Status: Acute Assessment and plan: Continue lisinopril, clonidine Hydralazine IV Consider nitroglycerin drip if not improving (2) Enteritis Current Visit: Yes Status: Acute Assessment and plan: Severe abdominal pain possibly secondary to acute enteritis with possible phlegmon Continue ciprofloxacin IV and Flagyl IV day 2, clear liquids and IV antibiotics for 48 h recommended by surgery, IV fluids Father surgery recommendations appreciated Morphine for pain CT scan of abdomen with contrast showed : Inflamed appearing and lesser small bowel loops in the left mid abdomen with moderate amount of mesenteric edema and associated adenopathy. There are adjacent foci of extraluminal gas including the contrast containing rounded 1.5 cm collection. Findings could represent small-bowel diverticulitis and/or contained perforation. Underlying neoplasm cannot be excluded. Bilateral lower pole renal cortical lesions, larger on the left, with density greater than expected for stones. Follow-up renal ultrasound versus renal protocol CT or MRI would be helpful to exclude solid lesion. IMPRESSION: 1. Cluster of inflamed small bowel loops in the mid left abdomen with wall thickening and mesenteric stranding. Cannot exclude a a small contained perforation and further evaluation could be obtained with repeat study with oral contrast. No well-defined drainable fluid collection. 2. Colonic diverticulosis without evidence of acute diverticulitis. 3. 4.1 cm indeterminate lesion arising from the lower pole of the left kidney probably representing a proteinaceous cyst though neoplasm cannot be excluded. Several small exophytic lesions arising from the lower pole of the right kidney too small to definitively characterize. Recommend further evaluation with nonemergent ultrasound or CT urogram. (3) Diabetes mellitus Current Visit: Yes Status: Acute Assessment and plan: Continue insulin sliding scale Qualifiers: Diabetes mellitus type: type 2 Diabetes mellitus complication status: with kidney complications Diabetes mellitus complication detail: with chronic kidney disease Diabetes mellitus watermaster insulin use: without skilled nursing use Chronic kidney disease stage: stage 3 (moderate) Qualified Code(s): E11.22 - Type 2 diabetes mellitus with diabetic chronic kidney disease; N18.3 - Chronic kidney disease, stage 3 (moderate) (4) CKD (chronic kidney disease) stage 3, GFR 30-59 ml/min Current Visit: Yes Status: Acute (5) Kidney lesion Current Visit: Yes Status: Acute Assessment and plan: 4.1 cm indeterminate lesion arising from the lower pole of the left kidney probably representing a proteinaceous cyst though neoplasm cannot be excluded. Several small exophytic lesions arising from the lower pole of the right kidney too small to definitively characterize. May order ultrasound - Subjective Interval history: Abdominal tenderness has improved slightly, nausea, denies any chest pressure of breath, no fevers, no dysuria or diarrhea - Constitutional Vitals: Temp Pulse Resp BP Pulse Ox 97.9 F 68 16 192/69 96 02/24/17 15:00 02/24/17 15:00 02/24/17 15:00 02/24/17 15:00 02/24/17 15:00 General appearance: Present: A&O X 3, pleasant, no acute distress (non toxic appearing) - Head Head exam: Present: atraumatic, normocephalic - Eye Eye exam: Present: PERRL, conjuntiva pink, sclera anicteric Pupils: Present: PERRL - Neck Neck exam general surgery: Present: supple, trachea midline. Absent: lymphadenopathy - Respiratory Respiratory exam: Present: CTAB. Absent: accessory muscle use, rales, rhonchi, wheezes - Cardiovascular Cardiovascular exam: Present: RRR, +S1, +S2. Absent: diastolic murmur, gallop, rubs, systolic murmur - GI/Abdominal GI/Abdominal exam: Present: normal bowel sounds, soft, no peritoneal signs. Absent: distended, tenderness - Extremities Exam Extremities exam: Present: tenderness (lower abdominal pain, no rebound), warm, radial pulses palpable and symmetrical. Absent: calf tenderness, cyanotic, pedal edema - Neurological Exam Neurological exam: Present: CN II-XII intact, oriented X3, no focal deficits. Absent: pronater drift, facial droop, speech deficit - Skin Skin exam: Present: dry, intact Internal Medicine: Result - Labs CBC & Chem 7: 02/24/17 03:55 02/24/17 03:55 Labs: Short CBC 02/24/17 Range/Units 03:55 WBC 6.1 (4.3-11.1) K/mcL Hgb 9.9 L (11.5-15.4) g/dL Hct 29.6 L (35.3-44.9) % Plt Count 173 (140-400) K/mcL BMP 02/24/17 03:55 Sodium 140 Potassium 3.7 Chloride 104 Carbon Dioxide 26 BUN 14 Creatinine 1.30 H Glucose 101 H Calcium 9.4 - Impressions Impressions Abdomen/Pelvis CT 02/23/17 21:00 IMPRESSION: Inflamed appearing and lesser small bowel loops in the left mid abdomen with moderate amount of mesenteric edema and associated adenopathy. There are adjacent foci of extraluminal gas including the contrast containing rounded 1.5 cm collection. Findings could represent small-bowel diverticulitis and/or contained perforation. Underlying neoplasm cannot be excluded. Bilateral lower pole renal cortical lesions, larger on the left, with density greater than expected for stones. Follow-up renal ultrasound versus renal protocol CT or MRI would be helpful to exclude solid lesion. D/ / Glory Escalona Cha, MD / Glory Escalona Cha, MD Interpreting Provider: Glory Escalona Cha, MD - VTE Documentation of Mechanical Device: Intermittent pneumatic compression device Consult Discharge Plan - Plan Referrals: Solis Armas CNP [Primary Care Provider] -
[2017-02-24] MEDS: hydrALAZINE 25 MG TABLET PO SCH ×2 (18:26→19:44)
[2017-02-24] MEDS ORDERED: Ringers Solution, Lactated 1,000 ML IVC SCH (21:23)
[2017-02-25] MEDS: Insulin LISPRO 300 UNITS/3 ML VIAL SQ SCH ×4 (00:09→17:56)
[2017-02-25 05:02] LABS: Calcium 9.5 mg/dL (8.6-10.8)
[2017-02-25] MEDS: *HR* Heparin 5,000 UNIT/ML VIAL SQ SCH ×3 (05:09→21:07)
[2017-02-25] MEDS: Metoprolol XL (24 HR) Succ 50 MG TAB.ER.24H PO SCH (08:26)
[2017-02-25] MEDS: hydrALAZINE 25 MG TABLET PO SCH ×4 (08:26→21:09)
[2017-02-25] MEDS: cloNIDine HCl 0.1 MG TABLET PO SCH ×3 (08:26→21:56)
[2017-02-25] MEDS: MetroNIDAZOLE 500 MG/100 ML 500 MG/100 ML BAG IVPB SCH ×2 (08:27→15:45)
[2017-02-25] MEDS: Lisinopril 20 MG TABLET PO SCH (08:27)
[2017-02-25] MEDS: Gabapentin 300 MG CAPSULE PO SCH ×2 (08:27→21:08)
--- NOTE | 2017-02-25 14:54 | General Surgery Progress Note ---
<Kym Bautista Ethan - Last Filed: 02/25/17 14:52> Date of Encounter: 02/25/17 Time of Encounter: 14:45 - Assessment and Plan (1) Enteritis Current Visit: Yes Status: Acute May advance to full liquids IV fluids IV antibiotics- Cipro and Flagyl (will need to continue for at least 24 more hours) Serial abdominal exams Supportive care/pain control Will continue to follow and assess progress No urgent surgical intervention indicated at this time (2) Phlegmon Current Visit: Yes Status: Acute Continue IV antibiotics for at least the next 24 more hours- cipro and flagyl Subjective Patient reports: no new complaints, feels better, still having pain, pain is less, tolerating liquids well, voiding w/o difficulty, flatus, afebrile Objective Vital Signs - Last 8 Hours Temp Pulse Resp BP Pulse Ox 02/25/17 11:16 98.7 F 56 13 151/60 93 02/25/17 09:09 99 F 70 15 177/71 93 02/25/17 07:21 98.4 F 69 13 176/68 93 Intake and Output 02/24/17 02/25/17 02/25/17 23:59 07:59 15:59 Intake Total 1099 / 1099 200 / 200 580 / 580 Output Total 200 / 200 Balance 1099 / 1099 0 / 0 580 / 580 Intake: IV Fluids 1099 / 1099 200 / 200 100 / 100 Cipro Premix 200 MG/100 100 / 100 ML 200 mg In 100 ml @ 100 mls/hr IVPB Q12H [facility] Rx# :[id number] Flagyl Premix 500 MG/100 100 / 100 100 / 100 100 / 100 ML 500 mg In 100 ml @ 100 mls/hr IVPB Q8HR [facility] Rx# :[id number] Oral 480 / 480 Output: Urine 200 / 200 Other: Meal Lunch Nourishment/Supplement Percent of Meal Consumed 25% 0% Weight 74.162 kg Blood Glucose* 132 100 125 Patient Weight 02/25/17 23:59 Weight 74.162 kg - General physical appearance well developed, well nourished, no distress - Eyes normal ocular movement - ENT normal mucosa, atraumatic, normocephalic - Neck Neck exam: trachea midline - Respiratory normal respiratory effort, clear to auscultation - Cardiovascular Cardiovascular exam: Present: RRR - Abdomen Abdomen: Present: bowel sounds present, soft, tender (mildly tender) - Neurologic CN 2-12 grossly intact - Musculoskeletal normal gait, normal posture - Psychiatric oriented to time, oriented to person, oriented to place, speech is normal, memory intact - Labs 02/24/17 03:55 02/25/17 04:34 Diabetes panel 02/25/17 Range/Units 04:34 Sodium 139 (136-145) mEq/L Potassium 4.0 (3.5-4.5) mEq/L Chloride 105 (98-109) mEq/L Carbon Dioxide 25 (19-29) mEq/L BUN 12 (7-20) mg/dL Creatinine 1.44 H (0.57-1.11) mg/dL Glucose 105 H (70-99) mg/dL Calcium 9.5 (8.6-10.8) mg/dL Calcium panel 02/25/17 Range/Units 04:34 Calcium 9.5 (8.6-10.8) mg/dL Pituitary panel 02/25/17 Range/Units 04:34 Sodium 139 (136-145) mEq/L Potassium 4.0 (3.5-4.5) mEq/L Chloride 105 (98-109) mEq/L Carbon Dioxide 25 (19-29) mEq/L BUN 12 (7-20) mg/dL Creatinine 1.44 H (0.57-1.11) mg/dL Glucose 105 H (70-99) mg/dL Calcium 9.5 (8.6-10.8) mg/dL Adrenal panel 02/25/17 Range/Units 04:34 Sodium 139 (136-145) mEq/L Potassium 4.0 (3.5-4.5) mEq/L Chloride 105 (98-109) mEq/L Carbon Dioxide 25 (19-29) mEq/L BUN 12 (7-20) mg/dL Creatinine 1.44 H (0.57-1.11) mg/dL Glucose 105 H (70-99) mg/dL Calcium 9.5 (8.6-10.8) mg/dL - VTE Documentation of Mechanical Device: Intermittent pneumatic compression device Consult Discharge Plan - Plan Referrals: Solis Armas, JANE [Primary Care Provider] - <Nayan Gustafson - Last Filed: 02/25/17 16:03> Date of Encounter: 02/25/17 Objective Vital Signs - Last 8 Hours Temp Pulse Resp BP Pulse Ox 02/25/17 11:16 98.7 F 56 13 151/60 93 02/25/17 09:09 99 F 70 15 177/71 93 Intake and Output 02/25/17 02/25/17 02/25/17 07:59 15:59 23:59 Intake Total 200 / 200 680 / 680 Output Total 200 / 200 Balance 0 / 0 680 / 680 Intake: IV Fluids 200 / 200 200 / 200 Cipro Premix 200 MG/100 100 / 100 100 / 100 ML 200 mg In 100 ml @ 100 mls/hr IVPB Q12H [facility] Rx# :[id number] Flagyl Premix 500 MG/100 100 / 100 100 / 100 ML 500 mg In 100 ml @ 100 mls/hr IVPB Q8HR [facility] Rx# :[id number] Oral 480 / 480 Output: Urine 200 / 200 Other: Meal Nourishment/Supplement Percent of Meal Consumed 0% Weight 74.162 kg Blood Glucose* 100 125 Patient Weight 02/25/17 23:59 Weight 74.162 kg - Labs 02/24/17 03:55 02/25/17 04:34 Diabetes panel 02/25/17 Range/Units 04:34 Sodium 139 (136-145) mEq/L Potassium 4.0 (3.5-4.5) mEq/L Chloride 105 (98-109) mEq/L Carbon Dioxide 25 (19-29) mEq/L BUN 12 (7-20) mg/dL Creatinine 1.44 H (0.57-1.11) mg/dL Glucose 105 H (70-99) mg/dL Calcium 9.5 (8.6-10.8) mg/dL Calcium panel 02/25/17 Range/Units 04:34 Calcium 9.5 (8.6-10.8) mg/dL Pituitary panel 02/25/17 Range/Units 04:34 Sodium 139 (136-145) mEq/L Potassium 4.0 (3.5-4.5) mEq/L Chloride 105 (98-109) mEq/L Carbon Dioxide 25 (19-29) mEq/L BUN 12 (7-20) mg/dL Creatinine 1.44 H (0.57-1.11) mg/dL Glucose 105 H (70-99) mg/dL Calcium 9.5 (8.6-10.8) mg/dL Adrenal panel 02/25/17 Range/Units 04:34 Sodium 139 (136-145) mEq/L Potassium 4.0 (3.5-4.5) mEq/L Chloride 105 (98-109) mEq/L Carbon Dioxide 25 (19-29) mEq/L BUN 12 (7-20) mg/dL Creatinine 1.44 H (0.57-1.11) mg/dL Glucose 105 H (70-99) mg/dL Calcium 9.5 (8.6-10.8) mg/dL - Attending Attestation For this encounter, I have reviewed the STRUCTURAL ENGINEERING TECHNICIAN or PA documentation, treatment plan, and medical decision making; and I have had face to face time with this patient. Reviewed the above assessment and evaluation and agree with the above plan. Patient has less abdominal pain today compared to yesterday on examination and a positive bowel movement today. Will advanced to continue with IV antibiotics. Consider further advancement of her diet tomorrow she tolerates dinner).
[2017-02-25] MEDS: Ondansetron 4 MG/2 ML VIAL IVP PRN ×2 (16:38→21:07)
--- NOTE | 2017-02-25 18:49 | Internal Med Progress Note ---
Date of Encounter: 02/25/17 Time of Encounter: 18:46 - Assessment and plan (1) Malignant hypertension Current Visit: Yes Status: Acute Assessment and plan: Continue lisinopril, increased dose of clonidine to 0.2 up to 3 times a day and increase hydralazine 50 mg 4 times a day Hydralazine IV Consider nitroglycerin drip if not improving (2) Enteritis Current Visit: Yes Status: Acute Assessment and plan: Severe abdominal pain possibly secondary to acute enteritis with possible phlegmon Continue ciprofloxacin IV and Flagyl IV day 3, clear liquids and IV antibiotics for 24 more hours as recommended by surgery, IV fluids Advance diet to full liquids Father surgery recommendations appreciated Morphine for pain CT scan of abdomen with contrast showed : Inflamed appearing and lesser small bowel loops in the left mid abdomen with moderate amount of mesenteric edema and associated adenopathy. There are adjacent foci of extraluminal gas including the contrast containing rounded 1.5 cm collection. Findings could represent small-bowel diverticulitis and/or contained perforation. Underlying neoplasm cannot be excluded. Bilateral lower pole renal cortical lesions, larger on the left, with density greater than expected for stones. Follow-up renal ultrasound versus renal protocol CT or MRI would be helpful to exclude solid lesion. IMPRESSION: 1. Cluster of inflamed small bowel loops in the mid left abdomen with wall thickening and mesenteric stranding. Cannot exclude a a small contained perforation and further evaluation could be obtained with repeat study with oral contrast. No well-defined drainable fluid collection. 2. Colonic diverticulosis without evidence of acute diverticulitis. 3. 4.1 cm indeterminate lesion arising from the lower pole of the left kidney probably representing a proteinaceous cyst though neoplasm cannot be excluded. Several small exophytic lesions arising from the lower pole of the right kidney too small to definitively characterize. Recommend further evaluation with nonemergent ultrasound or CT urogram. (3) Diabetes mellitus Current Visit: Yes Status: Acute Assessment and plan: Continue insulin sliding scale Qualifiers: Diabetes mellitus type: type 2 Diabetes mellitus complication status: with kidney complications Diabetes mellitus complication detail: with chronic kidney disease Diabetes mellitus parts counterman insulin use: without fci use Chronic kidney disease stage: stage 3 (moderate) Qualified Code(s): E11.22 - Type 2 diabetes mellitus with diabetic chronic kidney disease; N18.3 - Chronic kidney disease, stage 3 (moderate) (4) CKD (chronic kidney disease) stage 3, GFR 30-59 ml/min Current Visit: Yes Status: Acute (5) Kidney lesion Current Visit: Yes Status: Acute Assessment and plan: 4.1 cm indeterminate lesion arising from the lower pole of the left kidney probably representing a proteinaceous cyst though neoplasm cannot be excluded. Several small exophytic lesions arising from the lower pole of the right kidney too small to definitively characterize. Ultrasound shows simple left renal cyst with single Bosniak 2 left renal cyst, normal appearance of the right kidney - Subjective Interval history: 2 complaining of abdominal pain and nausea, denies any chest pressure of breath , no fevers, no dysuria or diarrhea - Constitutional Vitals: Temp Pulse Resp BP Pulse Ox 97.8 F 58 18 147/65 94 02/25/17 18:40 02/25/17 18:40 02/25/17 18:40 02/25/17 18:40 02/25/17 18:40 General appearance: Present: A&O X 3, pleasant, no acute distress (non toxic appearing) - Head Head exam: Present: atraumatic, normocephalic - Eye Eye exam: Present: PERRL, conjuntiva pink, sclera anicteric Pupils: Present: PERRL - Neck Neck exam general surgery: Present: supple, trachea midline. Absent: lymphadenopathy - Respiratory Respiratory exam: Present: CTAB. Absent: accessory muscle use, rales, rhonchi, wheezes - Cardiovascular Cardiovascular exam: Present: RRR, +S1, +S2. Absent: diastolic murmur, gallop, rubs, systolic murmur - GI/Abdominal GI/Abdominal exam: Present: distended, normal bowel sounds, soft, tenderness ( Diffuse lower abdominal tenderness, no rebound), no peritoneal signs. Absent: rebound - Extremities Exam Extremities exam: Present: warm, radial pulses palpable and symmetrical. Absent : calf tenderness, cyanotic, pedal edema - Neurological Exam Neurological exam: Present: CN II-XII intact, oriented X3, no focal deficits. Absent: pronater drift, facial droop, speech deficit - Skin Skin exam: Present: dry, intact Internal Medicine: Result - Labs CBC & Chem 7: 02/24/17 03:55 02/25/17 04:34 Labs: BMP 02/25/17 04:34 Sodium 139 Potassium 4.0 Chloride 105 Carbon Dioxide 25 BUN 12 Creatinine 1.44 H Glucose 105 H Calcium 9.5 - Impressions Impressions Retroperitoneum Ultrasound 02/24/17 18:30 IMPRESSION: 1. Simple left renal cyst. 2. Single Bosniak 2 left renal cyst. 3. Normal appearance of the right kidney. D/ / 02/24/2017 20:53:19 Reagan Taylor MD / chris Interpreting Provider: Reagan Taylor MD - VTE Documentation of Mechanical Device: Intermittent pneumatic compression device Consult Discharge Plan - Plan Referrals: Solis Armas CNP [Primary Care Provider] -
[2017-02-26] MEDS: MetroNIDAZOLE 500 MG/100 ML 500 MG/100 ML BAG IVPB SCH ×2 (00:28→10:18)
[2017-02-26] MEDS: Insulin LISPRO 300 UNITS/3 ML VIAL SQ SCH ×3 (01:33→12:13)
[2017-02-26 03:43] LABS: Hematocrit 30.6 % (35.3-44.9); Hemoglobin 10.2 g/dL (11.5-15.4); Mean Corpuscular HGB Conc 33.3 g/dL (31.6-35.5); Mean Corpuscular Hemoglobin 31.5 pg (28.0-33.3); Mean Corpuscular Volume 94.4 fL (83.0-100.0); Mean Platelet Volume 10.1 fL (9.4-12.4); Platelet Count 183 K/mcL (140-400); Red Blood Count 3.24 M/mcL (3.82-4.97); Red Cell Distribution Width 13.6 % (11.5-14.5)
[2017-02-26 03:52] LABS: Calcium 8.6 mg/dL (8.6-10.8); Potassium 3.9 mEq/L (3.5-4.5)
[2017-02-26] MEDS: *HR* Heparin 5,000 UNIT/ML VIAL SQ SCH (05:36)
[2017-02-26 07:24] VITALS: BP 162/70
--- NOTE | 2017-02-26 08:21 | Discharge Summary ---
Date of Encounter: 02/26/17 Time of Encounter: 08:18 - Discharge Diagnosis (1) Enteritis Priority: Primary Status: Acute Comments: acute enteritis with possible phlegmon/small bowed diverticulitis (2) Malignant hypertension Priority: Primary Status: Acute (3) Diabetes mellitus Priority: Secondary Status: Acute Qualifiers: Diabetes mellitus type: type 2 Diabetes mellitus complication status: with kidney complications Diabetes mellitus complication detail: with chronic kidney disease Diabetes mellitus long-term insulin use: without long-term use Chronic kidney disease stage: stage 3 (moderate) Qualified Code(s): E11.22 - Type 2 diabetes mellitus with diabetic chronic kidney disease; N18.3 - Chronic kidney disease, stage 3 (moderate) (4) CKD (chronic kidney disease) stage 3, GFR 30-59 ml/min Priority: Secondary Status: Acute (5) Kidney lesion Priority: Secondary Status: Acute Comments: CT scan of the abdomen showed: 4.1 cm indeterminate lesion arising from the lower pole of the left kidney probably representing a proteinaceous cyst though neoplasm cannot be excluded. Several small exophytic lesions arising from the lower pole of the right kidney too small to definitively characterize. Ultrasound showed simple left renal cyst with single Bosniak 2 left renal cyst, normal appearance of the right kidney - Discharge Medications Prescriptions: Ciprofloxacin HCl [Cipro] 500 mg PO BID #8 cloNIDine HCl [CloNIDine HCl] 0.2 mg PO TID #90 tab hydrALAZINE [HydrALAZINE] 50 mg PO QID #120 tab Tramadol HCl [Ultram] 50 mg PO BID PRN #20 PRN Reason: Pain Home Medications: Allopurinol [Zyloprim 100 MG] 100 mg PO DAILY 02/22/17 [History] Atorvastatin Calcium [Lipitor] 80 mg PO HS 02/22/17 [History] Calcitriol [Rocaltrol] 0.25 mcg PO DAILY 02/22/17 [History] Cholecalciferol (D-3) [Vitamin D] 1,000 unit PO DAILY 02/22/17 [History] Furosemide [Lasix] 40 mg PO DAILY 02/22/17 [History] Gabapentin [Neurontin] 600 mg PO BID 02/22/17 [History] Glimepiride [Amaryl] 4 mg PO BID 02/22/17 [History] Lisinopril [Zestril] 40 mg PO DAILY 02/22/17 [History] Metoprolol Succinate 150 mg PO DAILY 02/22/17 [History] Vitamin B Complex [B Complex] 1 each PO DAILY 02/22/17 [History] Ciprofloxacin HCl [Cipro] 500 mg PO BID #8 02/26/17 [Rx] Tramadol HCl [Ultram] 50 mg PO BID PRN #20 02/26/17 [Rx] cloNIDine HCl [CloNIDine HCl] 0.2 mg PO TID #90 tab 02/26/17 [Rx] hydrALAZINE [HydrALAZINE] 50 mg PO QID #120 tab 02/26/17 [Rx] metroNIDAZOLE [Flagyl] 500 mg PO BID #8 02/26/17 [Rx] Allergies/Adverse Reactions: 3 Allergy/AdvReac Type Severity Reaction Status Date / Time Procaine [From Novocain] AdvReac Shakiness Verified 02/22/17 18:06 Procedures/tests Complete & Pending: Procedures Performed prior 72 hours Category Date Time Status abdominal/pelvis CT without contrast [CT abd pelvis wo Cat Scan 02/23/17 21: 00 Completed iv oral only] [CT] Routine US retroperitoneal limited [US] Routine Exams 02/24/17 18:30 Completed Date of admission: 02/23/17 01:19 Primary care physician: Solis Armas CNP Consults: 02/24/17 09:27 Consult to Surgery [CONS] Routine Consulting Provider: Nayan Gustafson Reason for Consult: small bowel perforation Call Completed: Yes - Patient Status Disposition: Home, Self-Care Condition: Good Overall status at discharge: patient is progressing back to baseline - Discharge Instructions Follow Up With: Solis Armas CNP [Primary Care Provider] - Additional Instructions: Follow-up with primary care physician within the next 7 days. Follow-up with surgery within the next 2 weeks. Complete 4 more days of ciprofloxacin and Flagyl, do not drink alcohol while being on Flagyl. Return to the emergency room if symptoms worsen. Continue hydralazine 50 mg 4 times a day and increase frequency of clonidine 0.2 mg 3 times a day. - Diet and Activity Activity: increase activity as tolerated Diet: low fat, low cholesterol (Low lactose) Hospital course: Ms. Barksdale is a 81 year old female with a past medical history of diabetes type 2 [id number], hypertension, chronic kidney disease is stage III, prior abdominal surgeries with appendectomy, hysterectomy, breast cancer status post lumpectomy, hypertension, gout, neuropathy, hyperlipidemia presented with 1 week of diffuse generalized abdominal pain, crampy in nature, varying in intensity, associated with nausea, fever 99F and weakness. Decreased oral intake. Diarrheal BM 5 days, had an abnormal CT scan that suggested a possible microperforation of the small bowel. Pain was worse with eating. She stated that the pain essentially resolves if she doesn't eat for a day. Had nausea without vomiting, bloating. Had fevers and chills at home. A second CT scan of the abdomen performed with contrast showed a possible small bowel phlegmon and caused by small bowel diverticulitis/self-contained perforation. She was started on ciprofloxacin and Flagyl IV. Surgery was consulted and they recommended to continue IV antibiotics for 48 hours. Patient has improved, denies any abdominal pain at the moment but has been having some watery diarrhea on and off. She is tolerating the diet and is stable to be discharged home. She was given the option to stay an additional day but prefers to be discharged later today and follow-up as an outpatient. Patient was explained that one of the rare causes of perforation could be a neoplasia and that she needs to follow up with surgery or come back to the emergency room if her symptoms worsen/recur. The patient's blood pressure was very difficult to control, her blood pressure was as high as 189/74, her doses of clonidine were increased in frequency and hydralazine was added. - Time Spent with Patient Total time spent providing and/or coordinating discharge services: Greater than 30 minutes (40 min) - Constitutional Vitals: Temp Pulse Resp BP Pulse Ox 98.8 F 63 15 162/70 94 02/26/17 07:06 02/26/17 07:06 02/26/17 07:06 02/26/17 07:06 02/26/17 07:06 General appearance: Present: A&O X 3, pleasant, no acute distress (non toxic appearing) - Head Head exam: Present: atraumatic, normocephalic - Eye Eye exam: Present: PERRL, conjuntiva pink, sclera anicteric Pupils: Present: PERRL - Neck Neck exam general surgery: Present: supple, trachea midline. Absent: lymphadenopathy - Respiratory Respiratory exam: Present: CTAB. Absent: accessory muscle use, rales, rhonchi, wheezes - Cardiovascular Cardiovascular exam: Present: RRR, +S1, +S2. Absent: diastolic murmur, gallop, rubs, systolic murmur - GI/Abdominal GI/Abdominal exam: Present: distended, normal bowel sounds, soft, no peritoneal signs. Absent: tenderness - Extremities Exam Extremities exam: Present: warm, radial pulses palpable and symmetrical. Absent : calf tenderness, cyanotic, pedal edema - Neurological Exam Neurological exam: Present: CN II-XII intact, oriented X3, no focal deficits. Absent: pronater drift, facial droop, speech deficit - Skin Skin exam: Present: dry, intact - VTE Documentation of Mechanical Device: Intermittent pneumatic compression device
--- NOTE | 2017-02-26 09:23 | General Surgery Progress Note ---
Date of Encounter: 02/26/17 Time of Encounter: 09:21 - Assessment and Plan (1) Enteritis Current Visit: Yes Status: Acute See below. (2) Phlegmon Current Visit: Yes Status: Acute I am pleased with how well the patient is doing at this time. I do think it will be appropriate to advance her diet to soft foods a regular foods to see how she tolerates this. If she does not have any abdominal pain I think it would be appropriate to have her discharged home today with oral antibiotics for 7 days. I will make sure she has a follow-up appointment to see me in my office within 2 weeks. We will sign off, thank you very much. Subjective Patient reports: feels better (Denies any abdominal pain. No nausea or vomiting. ) Objective Vital Signs - Last 8 Hours Temp Pulse Resp BP Pulse Ox 02/26/17 07:06 98.8 F 63 15 162/70 94 02/26/17 03:18 97.9 F 66 17 146/64 93 Intake and Output 02/25/17 02/26/17 02/26/17 23:59 07:59 15:59 Intake Total 100 / 100 Balance 100 / 100 Intake: IV Fluids 100 / 100 Flagyl Premix 500 MG/100 100 / 100 ML 500 mg In 100 ml @ 100 mls/hr IVPB Q8HR [facility] Rx# :[id number] Other: Stool Size Large Moderate Stool Consistency loose loose liquid Stool Color Brown Brown # Voids 1 # Bowel Movements 2 1 # Bowel Movement Diapers 1 Weight 72.8 kg Blood Glucose* 242 120 Patient Weight 02/26/17 23:59 Weight 72.8 kg - General physical appearance well developed, well nourished, no distress - Abdomen Abdomen: Present: bowel sounds present, soft, non tender - Labs 02/26/17 02:53 02/26/17 02:53 Diabetes panel 02/26/17 Range/Units 02:53 Sodium 135 L (136-145) mEq/L Potassium 3.9 (3.5-4.5) mEq/L Chloride 103 (98-109) mEq/L Carbon Dioxide 23 (19-29) mEq/L BUN 16 (7-20) mg/dL Creatinine 1.41 H (0.57-1.11) mg/dL Glucose 123 H (70-99) mg/dL Calcium 8.6 (8.6-10.8) mg/dL Calcium panel 02/26/17 Range/Units 02:53 Calcium 8.6 (8.6-10.8) mg/dL Pituitary panel 02/26/17 Range/Units 02:53 Sodium 135 L (136-145) mEq/L Potassium 3.9 (3.5-4.5) mEq/L Chloride 103 (98-109) mEq/L Carbon Dioxide 23 (19-29) mEq/L BUN 16 (7-20) mg/dL Creatinine 1.41 H (0.57-1.11) mg/dL Glucose 123 H (70-99) mg/dL Calcium 8.6 (8.6-10.8) mg/dL Adrenal panel 02/26/17 Range/Units 02:53 Sodium 135 L (136-145) mEq/L Potassium 3.9 (3.5-4.5) mEq/L Chloride 103 (98-109) mEq/L Carbon Dioxide 23 (19-29) mEq/L BUN 16 (7-20) mg/dL Creatinine 1.41 H (0.57-1.11) mg/dL Glucose 123 H (70-99) mg/dL Calcium 8.6 (8.6-10.8) mg/dL - VTE Documentation of Mechanical Device: Intermittent pneumatic compression device Consult Discharge Plan - Plan Additional Instructions: Follow-up with primary care physician within the next 7 days. Follow-up with surgery within the next 2 weeks. Complete 4 more days of ciprofloxacin and Flagyl, do not drink alcohol while being on Flagyl. Return to the emergency room if symptoms worsen. Continue hydralazine 50 mg 4 times a day and increase frequency of clonidine 0.2 mg 3 times a day. Referrals: Solis Armas CNP [Primary Care Provider] - Prescriptions: Ciprofloxacin HCl [Cipro] 500 mg PO BID #8 cloNIDine HCl [CloNIDine HCl] 0.2 mg PO TID #90 tab hydrALAZINE [HydrALAZINE] 50 mg PO QID #120 tab Tramadol HCl [Ultram] 50 mg PO BID PRN #20 PRN Reason: Pain
[2017-02-26] MEDS: hydrALAZINE 25 MG TABLET PO SCH (10:18)
[2017-02-26] MEDS: Gabapentin 300 MG CAPSULE PO SCH (10:18)
[2017-02-26] MEDS: Metoprolol XL (24 HR) Succ 50 MG TAB.ER.24H PO SCH (10:18)
[2017-02-26] MEDS: cloNIDine HCl 0.1 MG TABLET PO SCH (10:18)
[2017-02-26] MEDS: Lisinopril 20 MG TABLET PO SCH (10:18)
== END 2017-02-26 15:40 | disposition home or self-care (01) | DRG 392 ==
LOC: EMEROO 17:57 → 3BNU 17:57 → SUATTDRO 02-23 01:19
PROVIDERS: ADMIT Internal Medicine; ATTEND Internal Medicine

== ENCOUNTER 2021-07-05 12:13 | Inpatient (IN) ==
[2021-07-05] MEDS ORDERED: niCARdipine 20 MG/200 ML MLS IVC ONE (15:18)
[2021-07-05] MEDS ORDERED: Ondansetron 4 MG/2 ML VIAL IVP PRN (15:19)
[2021-07-05] MEDS ORDERED: Acetaminophen 325 MG TABLET PO PRN (15:19)
[2021-07-05] MEDS: niCARdipine 20 MG/200 ML MLS IVC SCH ×4 (15:24→23:34)
[2021-07-05] MEDS ORDERED: CloNIDine Patch 0.1 MG PATCH (WEEKLY) TD SCH (16:15)
[2021-07-05 16:23] LABS: Hematocrit 35.9 % (35.3-44.9); Hemoglobin 12.1 g/dL (11.5-15.4); Mean Corpuscular HGB Conc 33.7 g/dL (31.6-35.5); Mean Corpuscular Hemoglobin 31.3 pg (28.0-33.3); Mean Platelet Volume 10.7 fL (9.4-12.4); Platelet Count 133 K/mcL (140-400); Red Blood Count 3.86 M/mcL (3.82-4.97); Red Cell Distribution Width 13.2 % (11.5-14.5); White Blood Count 15.2 K/mcL (4.3-11.1)
[2021-07-05 16:42] LABS: Albumin 3.9 g/dL (3.5-5.7); Albumin/Globulin Ratio 1.6 (1.1-2.2); Bilirubin,Total 0.9 mg/dL (0.3-1.0); Calcium 9.6 mg/dL (8.6-10.3); Globulin 2.5 g/dL (2.4-3.5); Magnesium 1.8 mg/dL (1.6-2.6); Phosphorous 2.6 mg/dL (2.7-4.5); Potassium 4.1 mEq/L (3.5-5.1); Total Protein 6.4 g/dL (6.4-8.9)
[2021-07-06] MEDS ORDERED: Acetaminophen IV 500 MG/50 ML BAG IVPB ONE (00:30)
[2021-07-06] MEDS: niCARdipine 20 MG/200 ML MLS IVC SCH ×5 (02:31→22:26)
[2021-07-06 05:21] LABS: Hematocrit 34.8 % (35.3-44.9); Hemoglobin 11.6 g/dL (11.5-15.4); Mean Corpuscular HGB Conc 33.3 g/dL (31.6-35.5); Mean Corpuscular Hemoglobin 31.3 pg (28.0-33.3); Mean Corpuscular Volume 93.8 fL (83.0-100.0); Mean Platelet Volume 11.5 fL (9.4-12.4); Platelet Count 126 K/mcL (140-400); Red Blood Count 3.71 M/mcL (3.82-4.97); Red Cell Distribution Width 13.3 % (11.5-14.5); White Blood Count 16.2 K/mcL (4.3-11.1)
[2021-07-06 06:41] LABS: Calcium 9.4 mg/dL (8.6-10.3); Chol/HDL Ratio 2.6 (0-4.9); Potassium 4.1 mEq/L (3.5-5.1)
[2021-07-06 13:41] LABS: Bacteria,Urine Many per hpf (None-Few); Bilirubin,Urine Negative (Negative); Blood,Urine Large (Negative); Clarity,Urine Ex.Turbid (Clear); Color,Urine Yellow (Yellow); Glucose,Urine (UA) Normal (Normal); Ketones,Urine Trace mg/dL (Negative); Leukocyte Esterase,Urine Large (Negative); Mucus,Urine Few per lpf (None-Few); Nitrite,Urine Negative (Negative); Protein,Urine >=300 mg/dL (Neg-Trace); RBC,Urine TNTC per hpf (0-3); Specific Gravity,Urine 1.021 (1.010-1.025); Urobilinogen,Urine Normal (Normal); WBC,Urine TNTC per hpf (0-3)
[2021-07-06] MEDS: cefTRIAXone 1,000 MG in 0.9 % Sodium Chloride Mini Bag 100 ML IVPB SCH (13:43)
[2021-07-06] MEDS: Ringers Solution, Lactated 1,000 ML IVC SCH (14:21)
[2021-07-06 14:53] LABS: Adenovirus Not Detected (Not Detect); Bordetella Pertussis Not Detected (Not Detect); Chlamydophila pneumoniae Not Detected (Not Detect); Coronavirus 229E Not Detected (Not Detect); Coronavirus HKU1 Not Detected (Not Detect); Coronavirus NL63 Not Detected (Not Detect); Coronavirus OC43 Not Detected (Not Detect); Human Metapneumovirus Not Detected (Not Detect); Human Rhinovirus/Enterovirus Not Detected (Not Detect); Influenza A Subtype 2009 H1 Not Detected (Not Detect); Influenza B Not Detected (Not Detect); Mycoplasma pneumoniae Not Detected (Not Detect); Parainfluenza Virus 1 Not Detected (Not Detect); Parainfluenza Virus 2 Not Detected (Not Detect); Parainfluenza Virus 3 Not Detected (Not Detect); Parainfluenza Virus 4 Not Detected (Not Detect); Respiratory Syncytial Virus Not Detected (Not Detect); SARS-CoV-2 Not Detected (Not Detect)
[2021-07-06 15:22] LABS: Estimated Average Glucose 160 mg/dl; Hemoglobin A1C 7.2 %
[2021-07-07] MEDS: Ringers Solution, Lactated 1,000 ML IVC SCH (00:01)
[2021-07-07] MEDS: niCARdipine 20 MG/200 ML MLS IVC SCH ×6 (02:36→23:41)
[2021-07-07 02:55] LABS: Basophils % 0.2 %; Hematocrit 31.1 % (35.3-44.9); Hemoglobin 10.3 g/dL (11.5-15.4); Immature Granulocytes % 0.6 % (0-4); Lymphocytes # 0.7 K/mcL (0.6-4.6); Lymphocytes % 6.5 %; Mean Corpuscular HGB Conc 33.1 g/dL (31.6-35.5); Mean Corpuscular Hemoglobin 32.2 pg (28.0-33.3); Mean Corpuscular Volume 97.2 fL (83.0-100.0); Mean Platelet Volume 10.9 fL (9.4-12.4); Monocytes % 9.4 %; Neutrophils # 9.2 K/mcL (1.6-8.9); Platelet Count 100 K/mcL (140-400); Red Cell Distribution Width 13.4 % (11.5-14.5); Segmented Neutrophils % 83.3 %
[2021-07-07 03:18] LABS: Calcium 8.5 mg/dL (8.6-10.3)
[2021-07-07] MEDS: cefTRIAXone 1,000 MG in 0.9 % Sodium Chloride Mini Bag 100 ML IVPB SCH (09:14)
[2021-07-07] MEDS ORDERED: Perflutren Lipid Microsphere 1.3 ML in 0.9 % Sodium Chloride 8.7 ML IVP PRN (12:43)
[2021-07-08] MEDS: niCARdipine 20 MG/200 ML MLS IVC SCH ×2 (05:00→09:05)
[2021-07-08 05:13] LABS: Basophils % 0.5 %; Eosinophils # 0.1 K/mcL (0.0-0.6); Eosinophils % 1.1 %; Hematocrit 30.8 % (35.3-44.9); Hemoglobin 10.4 g/dL (11.5-15.4); Immature Granulocytes % 0.2 % (0-4); Lymphocytes # 1.2 K/mcL (0.6-4.6); Lymphocytes % 14.8 %; Mean Corpuscular HGB Conc 33.8 g/dL (31.6-35.5); Mean Corpuscular Hemoglobin 31.9 pg (28.0-33.3); Mean Corpuscular Volume 94.5 fL (83.0-100.0); Mean Platelet Volume 11.8 fL (9.4-12.4); Monocytes # 0.9 K/mcL (0.0-1.3); Monocytes % 10.8 %; Neutrophils # 6.1 K/mcL (1.6-8.9); Platelet Count 112 K/mcL (140-400); Red Blood Count 3.26 M/mcL (3.82-4.97); Red Cell Distribution Width 13.1 % (11.5-14.5); Segmented Neutrophils % 72.6 %; White Blood Count 8.4 K/mcL (4.3-11.1)
[2021-07-08 05:27] LABS: Calcium 8.2 mg/dL (8.6-10.3); Potassium 3.7 mEq/L (3.5-5.1)
[2021-07-08] MEDS: cefTRIAXone 1,000 MG in 0.9 % Sodium Chloride Mini Bag 100 ML IVPB SCH (09:06)
[2021-07-08] MEDS: lisinopriL 20 MG TABLET PO SCH (09:57)
[2021-07-08] MEDS: Cholecalciferol (D-3) 1,000 UNIT (25MCG) TABLET PO SCH (09:57)
[2021-07-08] MEDS: cloNIDine HCL 0.1 MG TABLET PO SCH ×3 (09:58→20:08)
[2021-07-08] MEDS: hydrALAZINE 25 MG TABLET PO SCH ×2 (09:58→20:08)
[2021-07-08] MEDS: calcitrioL 0.25 MCG CAPSULE PO SCH (09:58)
[2021-07-08] MEDS: Gabapentin 300 MG CAPSULE PO SCH ×2 (09:58→20:08)
[2021-07-08] MEDS: allopurinoL 100 MG TABLET PO SCH (09:58)
[2021-07-08] MEDS: Furosemide 40 MG TABLET PO SCH (09:58)
[2021-07-08] MEDS: NIFEdipine XL (24 HR) 60 MG TAB.ER.24 PO SCH (09:58)
[2021-07-09 05:27] LABS: Hematocrit 31.5 % (35.3-44.9); Hemoglobin 10.2 g/dL (11.5-15.4); Mean Corpuscular HGB Conc 32.4 g/dL (31.6-35.5); Mean Corpuscular Hemoglobin 31.1 pg (28.0-33.3); Platelet Count 108 K/mcL (140-400); Red Blood Count 3.28 M/mcL (3.82-4.97); Red Cell Distribution Width 13.2 % (11.5-14.5); White Blood Count 7.8 K/mcL (4.3-11.1)
[2021-07-09 05:44] LABS: Calcium 8.3 mg/dL (8.6-10.3); Potassium 4.1 mEq/L (3.5-5.1)
[2021-07-09] MEDS: Cholecalciferol (D-3) 1,000 UNIT (25MCG) TABLET PO SCH (08:34)
[2021-07-09] MEDS: calcitrioL 0.25 MCG CAPSULE PO SCH (08:34)
[2021-07-09] MEDS: lisinopriL 20 MG TABLET PO SCH (08:34)
[2021-07-09] MEDS: allopurinoL 100 MG TABLET PO SCH (08:34)
[2021-07-09] MEDS: hydrALAZINE 25 MG TABLET PO SCH ×2 (08:34→20:03)
[2021-07-09] MEDS: Furosemide 40 MG TABLET PO SCH (08:35)
[2021-07-09] MEDS: NIFEdipine XL (24 HR) 60 MG TAB.ER.24 PO SCH (08:35)
[2021-07-09] MEDS: Gabapentin 300 MG CAPSULE PO SCH ×2 (08:35→20:03)
[2021-07-09] MEDS: cefTRIAXone 1,000 MG in 0.9 % Sodium Chloride Mini Bag 100 ML IVPB SCH (08:36)
[2021-07-09] MEDS ORDERED: cloNIDine HCL 0.1 MG TABLET PO SCH (09:00)
[2021-07-09] MEDS: cloNIDine HCL 0.1 MG TABLET PO SCH ×2 (15:58→20:04)
[2021-07-09] MEDS: Melatonin 3 MG TABLET PO PRN (20:03)
[2021-07-10 04:38] LABS: Hematocrit 28.3 % (35.3-44.9); Hemoglobin 9.1 g/dL (11.5-15.4); Mean Corpuscular HGB Conc 32.2 g/dL (31.6-35.5); Mean Corpuscular Hemoglobin 31.3 pg (28.0-33.3); Mean Corpuscular Volume 97.3 fL (83.0-100.0); Platelet Count 111 K/mcL (140-400); Red Blood Count 2.91 M/mcL (3.82-4.97); Red Cell Distribution Width 13.3 % (11.5-14.5); White Blood Count 8.9 K/mcL (4.3-11.1)
[2021-07-10 05:01] LABS: Calcium 8.4 mg/dL (8.6-10.3); Potassium 4.5 mEq/L (3.5-5.1)
[2021-07-10] MEDS ORDERED: 0.9 % Sodium Chloride 500 ML IVC ONE (08:00)
[2021-07-10] MEDS ORDERED: 0.9 % Sodium Chloride 1,000 ML IVC SCH (08:00)
[2021-07-10] MEDS ORDERED: lisinopriL 20 MG TABLET PO SCH (09:00)
[2021-07-10] MEDS: allopurinoL 100 MG TABLET PO SCH (09:01)
[2021-07-10] MEDS: cloNIDine HCL 0.1 MG TABLET PO SCH ×3 (09:02→22:15)
[2021-07-10] MEDS: NIFEdipine XL (24 HR) 60 MG TAB.ER.24 PO SCH (09:02)
[2021-07-10] MEDS: hydrALAZINE 25 MG TABLET PO SCH ×2 (09:03→22:15)
[2021-07-10] MEDS: calcitrioL 0.25 MCG CAPSULE PO SCH (09:03)
[2021-07-10] MEDS: cefTRIAXone 1,000 MG in 0.9 % Sodium Chloride Mini Bag 100 ML IVPB SCH (09:04)
[2021-07-10] MEDS: Cholecalciferol (D-3) 1,000 UNIT (25MCG) TABLET PO SCH (09:05)
[2021-07-10] MEDS: Melatonin 3 MG TABLET PO PRN (22:15)
[2021-07-11 05:15] LABS: Bacteria,Urine Few per hpf (None-Few); Bilirubin,Urine Negative (Negative); Blood,Urine Negative (Negative); Clarity,Urine Clear (Clear); Color,Urine Light-Yellow (Yellow); Glucose,Urine (UA) Normal (Normal); Ketones,Urine Negative (Negative); Leukocyte Esterase,Urine Small (Negative); Mucus,Urine Few per lpf (None-Few); Nitrite,Urine Negative (Negative); PH,Urine 5.5 pH Units (5.0-8.0); Protein,Urine 30 mg/dL (Neg-Trace); Renal Epithelial Cells,Urine Few per hpf (None-Few); Specific Gravity,Urine 1.016 (1.010-1.025); Squamous Epithelial Cell,Urine Few per hpf (None-Few); Transitional Epi Cells,Urine Few per hpf (None-Few); Urobilinogen,Urine Normal (Normal)
[2021-07-11 06:32] LABS: Hematocrit 31.4 % (35.3-44.9); Hemoglobin 10.1 g/dL (11.5-15.4); Mean Corpuscular HGB Conc 32.2 g/dL (31.6-35.5); Mean Corpuscular Hemoglobin 31.1 pg (28.0-33.3); Mean Corpuscular Volume 96.6 fL (83.0-100.0); Mean Platelet Volume 11.3 fL (9.4-12.4); Platelet Count 140 K/mcL (140-400); Red Blood Count 3.25 M/mcL (3.82-4.97); Red Cell Distribution Width 13.2 % (11.5-14.5); White Blood Count 10.1 K/mcL (4.3-11.1)
[2021-07-11 06:51] LABS: Calcium 8.9 mg/dL (8.6-10.3); Potassium 4.5 mEq/L (3.5-5.1)
[2021-07-11] MEDS: cloNIDine HCL 0.1 MG TABLET PO SCH ×3 (09:15→20:37)
[2021-07-11] MEDS: Cholecalciferol (D-3) 1,000 UNIT (25MCG) TABLET PO SCH (09:15)
[2021-07-11] MEDS: hydrALAZINE 25 MG TABLET PO SCH ×2 (09:16→20:37)
[2021-07-11] MEDS: calcitrioL 0.25 MCG CAPSULE PO SCH (09:16)
[2021-07-11] MEDS: allopurinoL 100 MG TABLET PO SCH (09:17)
[2021-07-11] MEDS: NIFEdipine XL (24 HR) 30 MG TAB.ER.24 PO SCH (09:17)
[2021-07-11] MEDS: Insulin LISPRO 300 UNITS/3 ML VIAL SUBQ SCH ×2 (16:49→20:38)
[2021-07-11] MEDS: Melatonin 3 MG TABLET PO PRN (20:37)
[2021-07-12 06:34] LABS: Hematocrit 29.9 % (35.3-44.9); Hemoglobin 9.8 g/dL (11.5-15.4); Mean Corpuscular HGB Conc 32.8 g/dL (31.6-35.5); Mean Corpuscular Hemoglobin 31.6 pg (28.0-33.3); Mean Corpuscular Volume 96.5 fL (83.0-100.0); Mean Platelet Volume 10.7 fL (9.4-12.4); Platelet Count 175 K/mcL (140-400); Red Cell Distribution Width 13.2 % (11.5-14.5); White Blood Count 9.1 K/mcL (4.3-11.1)
[2021-07-12 06:54] LABS: Calcium 9.3 mg/dL (8.6-10.3); Potassium 4.5 mEq/L (3.5-5.1)
[2021-07-12] MEDS: cloNIDine HCL 0.1 MG TABLET PO SCH ×3 (08:54→21:24)
[2021-07-12] MEDS: Insulin LISPRO 300 UNITS/3 ML VIAL SUBQ SCH ×4 (08:54→21:25)
[2021-07-12] MEDS: allopurinoL 100 MG TABLET PO SCH (08:55)
[2021-07-12] MEDS: hydrALAZINE 25 MG TABLET PO SCH ×2 (08:55→21:24)
[2021-07-12] MEDS: calcitrioL 0.25 MCG CAPSULE PO SCH (08:55)
[2021-07-12] MEDS: Cholecalciferol (D-3) 1,000 UNIT (25MCG) TABLET PO SCH (08:55)
[2021-07-12] MEDS: NIFEdipine XL (24 HR) 30 MG TAB.ER.24 PO SCH (08:56)
[2021-07-12] MEDS: Melatonin 3 MG TABLET PO PRN (21:23)
[2021-07-13 03:46] LABS: Hemoglobin 9.2 g/dL (11.5-15.4); Mean Corpuscular HGB Conc 31.7 g/dL (31.6-35.5); Mean Corpuscular Hemoglobin 30.9 pg (28.0-33.3); Mean Corpuscular Volume 97.3 fL (83.0-100.0); Mean Platelet Volume 10.3 fL (9.4-12.4); Platelet Count 168 K/mcL (140-400); Red Blood Count 2.98 M/mcL (3.82-4.97); Red Cell Distribution Width 13.2 % (11.5-14.5); White Blood Count 6.4 K/mcL (4.3-11.1)
[2021-07-13 04:08] LABS: Calcium 9.5 mg/dL (8.6-10.3); Potassium 4.7 mEq/L (3.5-5.1)
[2021-07-13] MEDS: Cholecalciferol (D-3) 1,000 UNIT (25MCG) TABLET PO SCH (08:04)
[2021-07-13] MEDS: allopurinoL 100 MG TABLET PO SCH (08:04)
[2021-07-13] MEDS: NIFEdipine XL (24 HR) 30 MG TAB.ER.24 PO SCH (08:04)
[2021-07-13] MEDS: hydrALAZINE 25 MG TABLET PO SCH (08:04)
[2021-07-13] MEDS: cloNIDine HCL 0.1 MG TABLET PO SCH ×2 (08:04→15:50)
[2021-07-13] MEDS: calcitrioL 0.25 MCG CAPSULE PO SCH (08:04)
[2021-07-13] MEDS: Insulin LISPRO 300 UNITS/3 ML VIAL SUBQ SCH ×2 (08:18→12:25)
[2021-07-13] MEDS: carvediloL 6.25 MG TABLET PO SCH ×2 (08:19→16:30)
[2021-07-13 13:51] LABS: Adenovirus Not Detected (Not Detect); Bordetella Pertussis Not Detected (Not Detect); Chlamydophila pneumoniae Not Detected (Not Detect); Coronavirus 229E Not Detected (Not Detect); Coronavirus HKU1 Not Detected (Not Detect); Coronavirus NL63 Not Detected (Not Detect); Coronavirus OC43 Not Detected (Not Detect); Human Metapneumovirus Not Detected (Not Detect); Human Rhinovirus/Enterovirus Not Detected (Not Detect); Influenza A Subtype 2009 H1 Not Detected (Not Detect); Influenza B Not Detected (Not Detect); Mycoplasma pneumoniae Not Detected (Not Detect); Parainfluenza Virus 1 Not Detected (Not Detect); Parainfluenza Virus 2 Not Detected (Not Detect); Parainfluenza Virus 3 Not Detected (Not Detect); Parainfluenza Virus 4 Not Detected (Not Detect); Respiratory Syncytial Virus Not Detected (Not Detect); SARS-CoV-2 Not Detected (Not Detect)
[2021-07-13 16:25] VITALS: BP 171/62; PULSE 78; TEMP 97.6; O2SAT 93
== END 2021-07-13 16:42 | DRG 871 ==
LOC: 2NNU → SUATTDRO 15:19 → 2NNU 07-06 01:05 → 3ANU 07-09 19:44
PROVIDERS: ADMIT Internal Medicine; ATTEND Family Medicine